=== PATIENT | female | born 1960 | race Caucasian/White ===

== ENCOUNTER 2019-02-04 09:37 | Outpatient (REF) | payer OTHER, SELFPAY ==
--- NOTE | 2019-02-04 08:30 | PAPFT_PTH ---
PATIENT: Elizabeth Hurley LOC: MARIELLA U#:[id number] AGE/SX: 59/F ROOM: RE02/04/[address]: Shirley Nation : 1960 BED: DIS: 02/04/2019 SPEC #: [id number] RECD: 02/05/19 12:05 STATUS: SOFIE REGeeta #: [id number] SKYLER: 02/04/19 08:[address]: Shirley Nation DEPT: [facility] Cytology RECD BY: Sharon Ratliff ENTERED: 02/05/19 12:05 SP TYPE: PAPFT KENDALL DR: Unknown,Unknown Tissues: 1 - CX/ENDOCX FOR PAP SMEARS Procedures: PAP THIN PREP/UVM Screening Comments: [id number] (UNSATISFACTORY FOR EVALUATION)
== END 2019-02-04 09:57 ==
LOC: LBN 09:37
PROVIDERS: Visit Provider Registered Nurse
DX: Z12.4 Encounter for screening for malignant neoplasm of cervix (principal); Z11.51 Encounter for screening for human papillomavirus (HPV); Z00.00 Encounter for general adult medical examination without abnormal findings
CPT/HCPCS: 88142; 87624

== ENCOUNTER 2019-05-22 16:40 | Outpatient (REF) | payer OTHER, SELFPAY ==
--- NOTE | 2019-05-22 16:00 | PAPFT_PTH ---
PATIENT: Elizabeth Hurley LOC: NCN U#:[id number] AGE/SX: 59/F ROOM: RE05/22/[address]: Shirley Nation : 1960 BED: DIS: 05/22/2019 SPEC #: [id number] RECD: 05/23/19 13:01 STATUS: SOFIE REQ #: [id number] SKYLER: 05/22/19 16:[address]: Shirley Nation DEPT: [facility] Cytology RECD BY: Valerie Pleitez ENTERED: 05/23/19 13:01 SP TYPE: PAPFT KENDALL DR: Unknown,Unknown Tissues: 1 - CX/ENDOCX FOR PAP SMEARS Procedures: PAP THIN PREP/UVM Screening HPV DNA PROBE Comments: [id number]
== END 2019-05-22 17:00 ==
LOC: NCHCN 16:40
PROVIDERS: Visit Provider Registered Nurse
DX: Z12.4 Encounter for screening for malignant neoplasm of cervix (principal); Z11.51 Encounter for screening for human papillomavirus (HPV)
CPT/HCPCS: 88142; 87624

== ENCOUNTER 2020-07-09 08:11 | Outpatient (REF) | payer OTHER, SELFPAY ==
[2020-07-09 21:24] LABS: Calculated LDL 208 mg/dL (<100); Cholesterol 300 mg/dL (<200); HDL Cholesterol 71 mg/dL (40-60); Triglyceride 107 mg/dL (<150)
== END 2020-07-09 08:31 ==
LOC: NCHCN 08:11
PROVIDERS: Visit Provider Registered Nurse
DX: E78.5 Hyperlipidemia, unspecified (principal)
CPT/HCPCS: 80061

== ENCOUNTER 2022-07-26 16:43 | Outpatient (REF) | payer BC, SELFPAY ==
[2022-07-26 21:41] LABS: BUN 15 mg/dL (7-18); CREATININE 0.6 mg/dL (0.55-1.02); Calcium 8.8 mg/dL (8.5-10.1); Calculated LDL 128 mg/dL (<100); Chloride 101 mmol/L (98-107); Cholesterol 217 mg/dL (<200); Estimated GFR 102.69 (mL/min/1.73m2); Glucose 88 mg/dL (74-106); HDL Cholesterol 71 mg/dL (40-60); Potassium 4.1 mmol/L (3.5-5.1); Sodium 139 mmol/L (136-145); Triglyceride 93 mg/dL (<150)
== END 2022-07-26 16:44 | disposition home or self-care (01) ==
LOC: NCHCN 16:43
PROVIDERS: Visit Provider Registered Nurse
DX: Z00.00 Encounter for general adult medical examination without abnormal findings (principal); E78.5 Hyperlipidemia, unspecified
CPT/HCPCS: 80048; 80061

== ENCOUNTER 2023-08-15 17:24 | Outpatient (REF) | payer BC, SELFPAY ==
[2023-08-15 22:04] LABS: Anion Gap 8.7 mmol/L (3-11); BUN 11 mg/dL (7-18); CO2 25.3 mmol/L (21.0-32.0); CREATININE 0.7 mg/dL (0.55-1.02); Calcium 9.1 mg/dL (8.5-10.1); Calculated LDL 201 mg/dL (<100); Chloride 102 mmol/L (98-107); Cholesterol 285 mg/dL (<200); Estimated GFR 98.34 (mL/min/1.73m2); Glucose 101 mg/dL (74-106); HDL Cholesterol 64 mg/dL (40-60); Potassium 4.2 mmol/L (3.5-5.1); Sodium 136 mmol/L (136-145); Triglyceride 104 mg/dL (<150)
== END 2023-08-15 17:25 | disposition home or self-care (01) ==
LOC: NCHCN 17:24
PROVIDERS: Visit Provider Nurse Practitioner Family
DX: E78.5 Hyperlipidemia, unspecified (principal)
CPT/HCPCS: 80048; 80061

== ENCOUNTER 2024-08-12 11:28 | Outpatient (REF) | payer OTHER, SELFPAY ==
--- OUTSIDE RECORDS SUMMARY | 2024-08-12 11:36 | XMS_ITS | Encounter Summary ---
Author Organization [facility] Address [address] [place] [address] Care Team Providers Care Caustic Pump Operator Name Role Phone Yaw Perea MD Primary Care Provider [phone] Encounter Details Date Type Department Care Team (Latest Contact Info) Description 10/12/2015 15:48 EST - 10/12/2015 23:59 [place] [address] Unknown, Provider, Discharge Disposition: Home or Self Care Social History Tobacco Use Types Packs/Day Years Used Date Smoking Tobacco: Never Alcohol Use Standard Drinks/Week Comments No 0 (1 standard drink = 0.6 oz pur e alcohol) Comments Unknown Sex and Gender Information Value Date Recorded Sex Assigned at Not on file Legal Sex Female 17:37 EST Gender Identity Female 05/08/2022 15:52 EDT Sexual Orientation Not on file documented as of this encounter Medications at Time of Discharge simvastatin (ZOCOR) 40 mg tablet Take 1 Tablet by mouth daily. documented as of this encounter Discharge Disposition Disposition Code Departure Means Destination Home or Self Alf documented in this encounter Plan of Treatment Upcoming Encounters Date Type Department Care Team (Late st Contact Info) Description 09/23/2024 15:50 EST Appointment [facility] Mammography [address] [place] [address] documented as of this encounter Visit Diagnoses Not on filedocumented in this encounter Care Teams Caustic Pump Operator Relationship Specialty Start Date End Date Yaw Perea MD [address] [place] [address] PCP - General 03/24/11 03/10/20 documented as of this encounter
--- OUTSIDE RECORDS SUMMARY | 2024-08-12 11:36 | XMS_ITS | Encounter Summary ---
Author Organization [facility] Address [address] [place] [address] Care Team Providers Care Dietary Tech Name Role Phone Yaw Perea MD Primary Care Provider [phone] Encounter Details Date Type Department Care Team (Late st Contact Info) Description 01/17/2019 Historical Results Only [facility] Radiology Results [address] [place], [place] [address] Shirley Nation, QUARTER LINING SMOOTHER [address] [place] [address] Social History Tobacco Use Types Packs/Day Years [...] on file documented as of this encounter Plan of Treatment Upcoming Encounters Date Type Department Care Team (Late st Contact Info) Description 09/23/2024 15:50 EST Appointment [facility] Mammography [address] [place] [address] documented as of this encounter Procedures Procedure Name Priority Date/Time Associated Diagnosis Comments MA BREAST DIAGNOSTIC UNILATERAL AMY 01/17/2019 11:42 EDT US BREAST LIMITED UNILATERAL 01/17/2019 11:42 EDT documented in this encounter Results * US BREAST LIMITED UNILATERAL (01/17/2019 11:42 EDT) Anatomical Region Laterality Modality Breast Other 01/17/2019 11:4 2 EDT Narrative 01/17/2019 11:42 EDT ? AN ADDENDUM IS INCLUDED ON THIS REPORT ? ADDENDUM ? ADDENDUM: ? DIAGNOSTIC RIGHT BREAST MAMMOGRAM: Full field 2D (C0VIEW) AND 3D ML ? and spot MLO views were obtained of the right breast. CAD technology ? and breast tomosynthesis was utilized. ? ADDENDUM SIGNED IN OTHER VENDOR SYSTEM 03/20/2019 ?Reported By: Baron Reis MD ?Transcribed: 03/20/2019 (1450) .NAIFSCR ?REPORT ? EXAM: ULTRASOUND/UNILAT BREAST CALL BACK ??EX. D/ (1107) ? CLINICAL INFORMATION: ? RIGHT BREAST, CYSTIC VS SOLID ? INDICATION: RIGHT BREAST, CYSTIC VS SOLID RIGHT BREAST NODULE ? DIAGNOSTIC RIGHT BREAST MAMMOGRAM: Full field ML and spot MLO views ? were obtained of the right breast. CAD technology and breast ? tomosynthesis was utilized. ? FINDINGS: On the current exam, central breast tissue is seen. On the ? current exam, this tissue appears very similar to numerous prior ? studies including the 2017 and 2016 prior studies. No clear discrete ? suspicious mass is noted. No architectural distortion is seen. There ? are scattered areas of fibroglandular density. ? DIAGNOSTIC RIGHT BREAST ULTRASOUND: ??Whole breast ultrasound ? evaluation, including the retroareolar region and all 4 quadrants, ? was obtained. ? FINDINGS: Incidental note is made of a 2-mm cyst in the central right ? breast at approximately the 9 o'clock position, 1 cm from the nipple. ? The breast tissue is otherwise normal in appearance throughout the ? breast parenchyma. No architectural distortion is noted. No ? suspicious mass is seen. ? IMPRESSION: ??This is a negative right breast mammogram and ultrasound ? (ACR category 1). Prominent tissue is seen in the central right ? breast, unchanged from 2016. No suspicious mass or architectural ? distortion is seen. The patient should return in one year for ? bilateral breast screening mammography. ? FINAL ASSESSMENT: ??DIAGNOSTIC RIGHT BREAST MAMMOGRAM/ULTRASOUND - ? BI-RADS Category 1 - Negative. ? These findings and recommendations were discussed directly with the ? patient by the ultrasound technology staff at 11:10 AM on 01/17/2019. ? These results will be communicated to your patient via a lay letter ? PAGE 1 ? Signed Report ? (CONTINUED) ? AN ADDENDUM IS INCLUDED ON THIS REPORT ? from Radiology. ??If any additional imaging is needed we will contact ? your patient directly. ? REPORT SIGNED IN OTHER VENDOR SYSTEM 01/19/2019 ?Reported By: Baron Reis MD ? CC: ? Transcribed Date/Time: 01/17/2019 (1142) ? Coil Inspector: ? Printed Date/Time: 04/23/2019 (2150) ? PAGE 2 ? Signed Report ? Procedure Note Baron Reis MD - 06/10/2019 AN ADDENDUM IS INCLUDED ON THIS REPORT ADDENDUM ADDENDUM: DIAGNOSTIC RIGHT BREAST MAMMOGRAM: Full field 2D (C0VIEW) AND 3D ML and spot MLO views were obtained of the right breast. CADtechnology and breast tomosynthesis was utilized. ADDENDUM SIGNED IN OTHER VENDOR SYSTEM 03/20/2019 Reported By: Baron Reis MD Transcribed: 03/20/2019 (1450) REPORT EXAM: ULTRASOUND/UNILAT BREAST CALL BACK EX. D/ (1107) CLINICAL INFORMATION: RIGHT BREAST, CYSTIC VS SOLID INDICATION: RIGHT BREAST, CYSTIC VS SOLID RIGHT BREAST NODULE DIAGNOSTIC RIGHT BREAST MAMMOGRAM: Full field ML and spot MLO views were obtained of the right breast. CAD technology and breast tomosynthesis was utilized. FINDINGS: On the current exam, central breast tissue is seen. Onthe current exam, this tissue appears very similar to numerous prior studies including the 2017 and 2016 prior studies. No cleardiscrete suspicious mass is noted. No architectural distortion is seen.There are scattered areas of fibroglandular density. DIAGNOSTIC RIGHT BREAST ULTRASOUND: Whole breast ultrasound evaluation, including the retroareolar region and all 4 quadrants, was obtained. FINDINGS: Incidental note is made of a 2-mm cyst in the centralright breast at approximately the 9 o'clock position, 1 cm from thenipple. The breast tissue is otherwise normal in appearance throughout the breast parenchyma. No architectural distortion is noted. No suspicious mass is seen. IMPRESSION: This is a negative right breast mammogram andultrasound (ACR category 1). Prominent tissue is seen in the central right breast, unchanged from 2016. No suspicious mass or architectural distortion is seen. The patient should return in one year for bilateral breast screening mammography. FINAL ASSESSMENT: DIAGNOSTIC RIGHT BREAST MAMMOGRAM/ULTRASOUND - BI-RADS Category 1 - Negative. These findings and recommendations were discussed directly with the patient by the ultrasound technology staff at 11:10 AM on01/17/2019. These results will be communicated to your patient via a lay letter PAGE 1 Signed Report (CONTINUED) AN ADDENDUM IS INCLUDED ON THIS REPORT from Radiology. If any additional imaging is needed we willcontact your patient directly. REPORT SIGNED IN OTHER VENDOR SYSTEM 01/19/2019 Reported By: Baron Reis MD CC: Transcribed Date/Time: 01/17/2019 (1142) Coil Inspector: Printed Date/Time: 04/23/2019 (2928) PAGE 2 Signed Report us Shirley Nation QUARTER LINING SMOOTHER IMG US ORDERABLES Final Result * MA BREAST DIAGNOSTIC UNILATERAL AMY (01/17/2019 11:42 EDT) Anatomical Region Laterality Modality Breast Other 01/17/2019 11:4 2 EDT Narrative 01/17/2019 11:42 EDT ? AN ADDENDUM IS INCLUDED ON THIS REPORT ? ADDENDUM ? ADDENDUM: ? DIAGNOSTIC RIGHT BREAST MAMMOGRAM: Full field 2D (C0VIEW) AND 3D ML ? and spot MLO views were obtained of the right breast. CAD technology ? and breast tomosynthesis was utilized. ? ADDENDUM SIGNED IN OTHER VENDOR SYSTEM 03/20/2019 ?Reported By: Baron Reis MD ?Transcribed: 03/20/2019 (1450) .POWSCR ?REPORT ? EXAM: MAMMOGRAM/MAMMO DX CALL BACK UNI W/ EX. D/ (1051) ? CLINICAL INFORMATION: ? RIGHT BREAST, SUSP FINDINGS ON INITIAL ? INDICATION: RIGHT BREAST, CYSTIC VS SOLID RIGHT BREAST NODULE ? DIAGNOSTIC RIGHT BREAST MAMMOGRAM: Full field ML and spot MLO views ? were obtained of the right breast. CAD technology and breast ? tomosynthesis was utilized. ? FINDINGS: On the current exam, central breast tissue is seen. On the ? current exam, this tissue appears very similar to numerous prior ? studies including the 2017 and 2016 prior studies. No clear discrete ? suspicious mass is noted. No architectural distortion is seen. There ? are scattered areas of fibroglandular density. ? DIAGNOSTIC RIGHT BREAST ULTRASOUND: ??Whole breast ultrasound ? evaluation, including the retroareolar region and all 4 quadrants, ? was obtained. ? FINDINGS: Incidental note is made of a 2-mm cyst in the central right ? breast at approximately the 9 o'clock position, 1 cm from the nipple. ? The breast tissue is otherwise normal in appearance throughout the ? breast parenchyma. No architectural distortion is noted. No ? suspicious mass is seen. ? IMPRESSION: ??This is a negative right breast mammogram and ultrasound ? (ACR category 1). Prominent tissue is seen in the central right ? breast, unchanged from 2016. No suspicious mass or architectural ? distortion is seen. The patient should return in one year for ? bilateral breast screening mammography. ? FINAL ASSESSMENT: ??DIAGNOSTIC RIGHT BREAST MAMMOGRAM/ULTRASOUND - ? BI-RADS Category 1 - Negative. ? These findings and recommendations were discussed directly with the ? patient by the ultrasound technology staff at 11:10 AM on 01/17/2019. ? These results will be communicated to your patient via a lay letter ? PAGE 1 ? Signed Report ? (CONTINUED) ? AN ADDENDUM IS INCLUDED ON THIS REPORT ? from Radiology. ??If any additional imaging is needed we will contact ? your patient directly. ? REPORT SIGNED IN OTHER VENDOR SYSTEM 01/19/2019 ?Reported By: Baron Reis MD ? CC: ? Transcribed Date/Time: 01/17/2019 (1142) ? Coil Inspector: ? Printed Date/Time: 04/23/2019 (8719) ? PAGE 2 ? Signed Report ? Procedure Note Baron Reis MD - 06/10/2019 AN ADDENDUM IS INCLUDED ON THIS REPORT ADDENDUM ADDENDUM: DIAGNOSTIC RIGHT BREAST MAMMOGRAM: Full field 2D (C0VIEW) AND 3D ML and spot MLO views were obtained of the right breast. CADtechnology and breast tomosynthesis was utilized. ADDENDUM SIGNED IN OTHER VENDOR SYSTEM 03/20/2019 Reported By: Baron Reis MD Transcribed: 03/20/2019 (5387) REPORT EXAM: MAMMOGRAM/MAMMO DX CALL BACK UNI W/ EX. D/ (1051) CLINICAL INFORMATION: RIGHT BREAST, SUSP FINDINGS ON INITIAL INDICATION: RIGHT BREAST, CYSTIC VS SOLID RIGHT BREAST NODULE DIAGNOSTIC RIGHT BREAST MAMMOGRAM: Full field ML and spot MLO views were obtained of the right breast. CAD technology and breast tomosynthesis was utilized. FINDINGS: On the current exam, central breast tissue is seen. Onthe current exam, this tissue appears very similar to numerous prior studies including the 2017 and 2016 prior studies. No cleardiscrete suspicious mass is noted. No architectural distortion is seen.There are scattered areas of fibroglandular density. DIAGNOSTIC RIGHT BREAST ULTRASOUND: Whole breast ultrasound evaluation, including the retroareolar region and all 4 quadrants, was obtained. FINDINGS: Incidental note is made of a 2-mm cyst in the centralright breast at approximately the 9 o'clock position, 1 cm from thenipple. The breast tissue is otherwise normal in appearance throughout the breast parenchyma. No architectural distortion is noted. No suspicious mass is seen. IMPRESSION: This is a negative right breast mammogram andultrasound (ACR category 1). Prominent tissue is seen in the central right breast, unchanged from 2016. No suspicious mass or architectural distortion is seen. The patient should return in one year for bilateral breast screening mammography. FINAL ASSESSMENT: DIAGNOSTIC RIGHT BREAST MAMMOGRAM/ULTRASOUND - BI-RADS Category 1 - Negative. These findings and recommendations were discussed directly with the patient by the ultrasound technology staff at 11:10 AM on01/17/2019. These results will be communicated to your patient via a lay letter PAGE 1 Signed Report (CONTINUED) AN ADDENDUM IS INCLUDED ON THIS REPORT from Radiology. If any additional imaging is needed we willcontact your patient directly. REPORT SIGNED IN OTHER VENDOR SYSTEM 01/19/2019 Reported By: Baron Reis MD CC: Transcribed Date/Time: 01/17/2019 (5988) Coil Inspector: Printed Date/Time: 04/23/2019 (1034) PAGE 2 Signed Report us Shirley Nation QUARTER LINING SMOOTHER IMG MAMMOGRAPHY ORDERABL ES Final Result documented in this encounter Visit Diagnoses Not on filedocumented in this encounter Care Teams Dietary Tech Relationship Specialty Start Date End Date Yaw Perea MD [address] [place] [address] PCP - General 03/24/11 03/10/20 documented as of this encounter
--- OUTSIDE RECORDS SUMMARY | 2024-08-12 11:36 | XMS_ITS | Encounter Summary ---
Author Organization [facility] Address [address] [place] [address] Care Team Providers Care Director Loan Name Role Phone Yaw Perea MD Primary Care Provider [phone] Encounter Details Date Type Department Care Team (Late st Contact Info) Description 07/22/2014 Historical Results Only [facility] Radiology Results [address] [place] [address] Yaw Perea MD [address] [place] [address] Social History Tobacco Use Types Packs/Day Years [...] Contact Info) Description 09/23/2024 15:50 EST Appointment [facility] Mammography [address] [place] [address] documented as of this encounter Procedures Procedure Name Priority Date/Time Associated Diagnosis Comments MA BREAST SCREENING BILATERAL 07/22/2014 19:13 EST documented in this encounter Results * MA BREAST SCREENING BILATERAL (07/22/2014 19:13 EST) Anatomical Region Laterality Modality Breast Bilateral Other 07/22/2014 19:1 3 EST Narrative 07/27/2014 10:40 EST ? EXAM: MAMMOGRAM/DIGITAL MAMMO LIZZY SCREEN ??EX. D/ (1913) ? CLINICAL INFORMATION: ? SCREENING ? TECHNIQUE: ??Full field digital whole breast 2D and 3D CC and MLO views ? of both breasts were obtained. CAD technology was utilized. ? INDICATION: ??Screening ? FINDINGS: ??The fibroglandular patterns of the breasts are normal. ? There has been no change when compared to previous mammograms and ? there is no mammographic evidence of cancer. The breasts are of ? scattered density. ? FINAL ASSESSMENT: ??BILATERAL BREAST - Category 1 - Negative. Routine ?mammographic follow-up is recommended. ? JSP:[email or web address] ?Reported By: Baron Reis MD ? CC: ? Transcribed Date/Time: 07/27/2014 (1040) ? Assistant Commissioner: ERIC ? Printed Date/Time: 01/06/2019 (1451) ? PAGE 1 ? Signed Report ? Procedure Note Baron Reis MD - 06/10/2019 EXAM: MAMMOGRAM/DIGITAL MAMMO LIZZY SCREEN EX. D/ (191) CLINICAL INFORMATION: SCREENING TECHNIQUE: Full field digital whole breast 2D and 3D CC and MLOviews of both breasts were obtained. CAD technology was utilized. INDICATION: Screening FINDINGS: The fibroglandular patterns of the breasts are normal. There has been no change when compared to previous mammograms and there is no mammographic evidence of cancer. The breasts are of scattered density. FINAL ASSESSMENT: BILATERAL BREAST - Category 1 - Negative.Routine mammographic follow-up is recommended. JSP:[email or web address] Reported By: Baron Reis MD CC: Transcribed Date/Time: 07/27/2014 (1040) Assistant Commissioner: ERIC Printed Date/Time: 01/06/2019 (4610) PAGE 1 Signed Report Yaw Perea MD IMG MAMMOGRAPHY ORDERABLES Final Result documented in this encounter Visit Diagnoses Not on filedocumented in this encounter Care Teams Director Loan Relationship Specialty Start Date End Date Yaw Perea MD [address] [place] [address] PCP - General 03/24/11 03/10/20 documented as of this encounter
--- OUTSIDE RECORDS SUMMARY | 2024-08-12 11:36 | XMS_ITS | Encounter Summary ---
Author Organization [facility] Address [address] [place] [address] Care Team Providers Care Engraver Apprentice Decorative Name Role Phone Petty Carcamo [facility]- Primary Care Provider [phone] Reason for Visit * Reason Comments Tailbone Pain Patient reports that she fell ice skating six weeks ago. Patient notes that injury was resolving. Patient states that after doing yoga last week patient's tailbone pain started to worsen again. Encounter Details Date Type Department Care Team (Late st Contact Info) Description 11/15/2023 10:00 EDT Walk-In [facility] [address] [place] [id number] Gerry Hudson, RESPITE WORKER [address] [facility] [address] [place] [address] Coccyx pain (Primary Dx) Social History Tobacco Use Types Packs/Day Years Used Date Smoking Tobacco: Never Alcohol Use Standard Drinks/Week Comments No 0 (1 standard drink = 0.6 oz pur e alcohol) Interpersonal Safety Answer Date Record ed Physically Hurt Never 03/07/2020 Verbally Threaten Not on file 03/07/2020 Comments No Sex and Gender Information Value Date Recorded Sex Assigned at Not on file Legal Sex Female 17:37 EST Gender Identity Female 05/08/2022 15:52 EDT Sexual Orientation Not on file documented as of this encounter Last Filed Vital Signs Vital Sign Reading Time Taken Comments Blood Pressure 108/76 11/15/2023 1019 EDT Pulse 60 11/15/2023 1019 EDT Temperature 36.5 ??C (97.7 ??F) 11/15/2023 1019 EDT Respiratory Rate 18 11/15/2023 1019 EDT Oxygen Saturation 97% 11/15/2023 1019 EDT Inhaled Oxygen Concentration - - Weight - - Height - - Body Mass Index - - documented in this encounter Patient Instructions * Patient Instructions* Gerry Hudson NP - 11/15/2023 10:00 EDT Right buttock discomfort in coccyx region. Previous injury 6 weeks to coccyx was likely irritated doing chair yoga. Ibuprofen 400mg every 6 hrs for discomfort and ice/heat alternating. This injury will take time. documented in this encounter Progress Notes * Shila Benavides RN - 11/15/2023 1000 EDT CC/HPI: Patient reports that she fell ice skating six weeks ago. Patient notes that injury was resolving. Patient states that after doing yoga last week patient's tailbone pain started to worsen again. Covid Screening: In the last 72 hours, has the patient had: New or unusual cough, shortness of breath, new nasal congestion, sore throat, fever, chills, body aches, or new loss of taste or smell: No In the past 10 days, has the patient had a positive Covid test OR a confirmed close Covid exposure (<6ft for > 15mins in 24hr period)? (if yes, assign to [facility], regardless of vaccination status)-No PCP: [facility]- Dona BENAVIDES RN 11/15/2023 9:55 * Gerry Hudson NP - 11/15/2023 1000 EDT Images from the original note were not included. [facility] Express [facility] Chief Complaint(s): Tailbone Pain (Patient reports that she fell ice skating six weeks ago. Patientnotes that injury was resolving. Patient states that after doing yoga last week patient's tailbone pain started to worsen again.) Assessment & Plan: 1. Coccyx pain New Prescriptions No medications on file This is a 63 y.o. yr old female patient is generally well appearing, afebrile, non toxic, well hydrated, stable on exam with who presents with right lower buttock pain after doing chair yoga. Previous fall and injury to coccyx 6 weeks ago. No sciatica involvement. No lumps or bumps. Pain is over lower right coccyx bone and likely irritation from chair yoga. Ice/heat alternating Ibuprofen 400mg every 6 hrs as needed for discomfort and time. Other considered diagnosis include: strain vs previous coccyx injury HPI: HPI Elizabeth Hurley is a 63 y.o. yr old female here with complaints of fell ice skating six weeks ago. Patient notes that injury was resolving. Patient states that after doing yoga last week patient's tailbone pain started to worsen again. ROS: ROS See HPI Social History Tobacco Use Smoking Status Never Smokeless Tobacco Not on file I have reviewed current problem list and current medications. Objective: Examination: Vital signs and nursing notes reviewed. Vitals: BP 108/76 Pulse 60 Temp 36.5 ??C (97.7 ??F) (Oral) Resp 18 SpO2 97% There is no height or weight on file to calculate BMI. Physical Exam Musculoskeletal: General: Tenderness (coccyx region) present. Normal range of motion. Legs: Comments: No lumps bumps or mass palpated. Tender to deep palpation over coccyx bone Skin: General: Skin is warm and dry. Neurological: Mental Status: She is alert and oriented to person, place, and time. An appropriate medical screening examination was performed. The patient was assessed prior to discharge and deemed stable for discharge home. documented in this encounter Plan of Treatment Upcoming Encounters Date Type Department Care Team (Late st Contact Info) Description 09/23/2024 15:50 EST Appointment [facility] Mammography [address] [place] [address] documented as of this encounter Visit Diagnoses Diagnosis Coccyx pain- Primary Other disorder of coccyx documented in this encounter Historical Medications * This list may reflect changes made after this encounter. estradioL [address] 10 mcg vaginally twice a week. added in this encounter Care Teams Engraver Apprentice Decorative Relationship Specialty Start Date End Date Dona [facility] [address] [place] [address] PCP - General 11/15/23 documented as of this encounter
--- OUTSIDE RECORDS SUMMARY | 2024-08-12 11:36 | XMS_ITS | Encounter Summary ---
Author Organization [facility] Address [address] [place] [address] Care Team Providers Care Corset Fitter Name Role Phone Yaw Perea MD Primary Care Provider [phone] Encounter Details Date Type Department Care Team (Late st Contact Info) Description 01/08/2019 Historical Results Only [facility] Radiology Results [address] [place], [place] [address] Shirley Nation, EMBROIDERY MACHINE OPERATOR [address] [place] [address] Social History Tobacco Use Types [...] Contact Info) Description 09/23/2024 15:50 EST Appointment [facility] Mammography [address] [place] [address] documented as of this encounter Procedures Procedure Name Priority Date/Time Associated Diagnosis Comments MA BREAST SCREENING AMY BILATERAL 01/08/2019 8:59 EDT documented in this encounter Results * MA BREAST SCREENING AMY BILATERAL (01/08/2019 8:59 EDT) Anatomical Region Laterality Modality Breast Bilateral Other 01/08/2019 8:59 EDT Narrative 01/08/2019 8:59 EDT ? EXAM: MAMMOGRAM/MAMMO BILATERAL SCREEN W ??EX. D/ (1743) ? CLINICAL INFORMATION: ? Z12.31 SCREENING ? INDICATION: Z12.31 SCREENING SCREENING ??December 10 18 ? TECHNIQUE: ??Full field digital whole breast 2D (C-view) and 3D CC and ? MLO views of both breasts were obtained. CAD technology was utilized. ? FINDINGS: On the MLO view of the right breast, there is a possible ? central breast small density. The remaining breast parenchyma is ? unremarkable. No additional areas of concern are seen. There are ? scattered areas of fibroglandular density. ? IMPRESSION: ? 1. This is a right breast mammogram with additional imaging required ? (ACR category 0) There is a possible density in the central breast, ? for which further imaging is required. ? 2. This is a negative left breast mammogram (ACR category 1). Left ? breast screening mammography is recommended in one year. ? FINAL ASSESSMENT: ??RIGHT BREAST - BI-RADS Category 0 - Incomplete; ? additional imaging evaluation needed. ? FINAL ASSESSMENT: ??LEFT BREAST - BI-RADS Category 1 - Negative. ? These results will be communicated to your patient via a lay letter ? from Radiology. ??If any additional imaging is needed we will contact ? your patient directly. ? REPORT SIGNED IN OTHER VENDOR SYSTEM 01/08/2019 ?Reported By: Baron Reis MD ? CC: ? Transcribed Date/Time: 01/08/2019 (858) ? Track Machine Operator Repairer: ? Printed Date/Time: 04/23/2019 (737) ? PAGE 1 ? Signed Report ? Procedure Note Baron Reis MD - 06/10/2019 EXAM: MAMMOGRAM/MAMMO BILATERAL SCREEN W EX. D/ (1743) CLINICAL INFORMATION: Z12.31 SCREENING INDICATION: Z12.31 SCREENING SCREENING December 10 TECHNIQUE: Full field digital whole breast 2D (C-view) and 3D CCand MLO views of both breasts were obtained. CAD technology wasutilized. FINDINGS: On the MLO view of the right breast, there is a possible central breast small density. The remaining breast parenchyma is unremarkable. No additional areas of concern are seen. There are scattered areas of fibroglandular density. IMPRESSION: 1. This is a right breast mammogram with additional imagingrequired (ACR category 0) There is a possible density in the central breast, for which further imaging is required. 2. This is a negative left breast mammogram (ACR category 1). Left breast screening mammography is recommended in one year. FINAL ASSESSMENT: RIGHT BREAST - BI-RADS Category 0 - Incomplete; additional imaging evaluation needed. FINAL ASSESSMENT: LEFT BREAST - BI-RADS Category 1 - Negative. These results will be communicated to your patient via a lay letter from Radiology. If any additional imaging is needed we willcontact your patient directly. REPORT SIGNED IN OTHER VENDOR SYSTEM 01/08/2019 Reported By: Baron Reis MD CC: Transcribed Date/Time: 01/08/2019 (59) Track Machine Operator Repairer: Printed Date/Time: 04/23/2019 (506) PAGE 1 Signed Report Shirley Nation EMBROIDERY MACHINE OPERATOR IMG MAMMOGRAPHY ORDERABL ES Final Result documented in this encounter Visit Diagnoses Not on filedocumented in this encounter Care Teams Corset Fitter Relationship Specialty Start Date End Date Yaw Perea MD [address] [place] [address] PCP - General 03/24/11 03/10/20 documented as of this encounter
--- OUTSIDE RECORDS SUMMARY | 2024-08-12 11:36 | XMS_ITS | Encounter Summary ---
Author Organization [facility] Address [address] [place] [address] Care Team Providers Care Meter/Relay Technician Name Role Phone Yaw Perea MD Primary Care Provider [phone] Encounter Details Date Type Department Care Team (Latest Contact Info) Description 12/08/2013 10:49 EDT - 12/08/2013 23:59 [place] [address] Unknown, Provider, Discharge Disposition: Home or Self [...] Code Departure Means Destination Home or Self Long-Term documented in this encounter Plan of Treatment Upcoming Encounters Date Type Department Care Team (Late st Contact Info) Description 09/23/2024 15:50 EST Appointment [facility] Mammography [address] [place], [place] [id number] documented as of this encounter Visit Diagnoses Not on filedocumented in this encounter Care Teams Meter/Relay Technician Relationship Specialty Start Date End Date Yaw Perea MD [address] [place] [address] PCP - General 03/24/11 03/10/20 documented as of this encounter
--- OUTSIDE RECORDS SUMMARY | 2024-08-12 11:36 | XMS_ITS | Encounter Summary ---
Author Organization [facility] Address [address] [place] [address] Care Team Providers Care Encephalographer Name Role Phone Yaw Perea MD Primary Care Provider [phone] Encounter Details Date Type Department Care Team (Late st Contact Info) Description 10/12/2015 Historical Results Only [facility] Radiology Results [address] [place] [address] Yaw Perea MD [address] [place] [address] Social History Tobacco Use Types Packs/Day [...] Contact Info) Description 09/23/2024 15:50 EST Appointment [facility] Mammography [address] [place] [address] documented as of this encounter Procedures Procedure Name Priority Date/Time Associated Diagnosis Comments MA BREAST SCREENING AMY BILATERAL 10/12/2015 16:40 EST documented in this encounter Results * MA BREAST SCREENING AMY BILATERAL (10/12/2015 16:40 EST) Anatomical Region Laterality Modality Breast Bilateral Other 10/12/2015 16:4 0 EST Narrative 10/13/2015 15:25 EST ? EXAM: MAMMOGRAM/MAMMO BILATERAL SCREEN W ??EX. D/ (1640) ? CLINICAL INFORMATION: ? Z12.39 SCREENING ? TECHNIQUE: ??Full field digital whole [...] Negative. Routine ?mammographic follow-up is recommended. ? These results will be communicated to your patient via a lay letter ? from Radiology. ??If any additional imaging is needed we will contact ? your patient directly. ? BBL:kad ?Reported By: Pasha Miller MD ? CC: ? Transcribed Date/Time: 10/13/2015 (1525) ? Market Manager: ERIC ? Printed Date/Time: 01/16/2019 (3743) ? PAGE 1 ? Signed Report ? Procedure Note Pasha Miller MD - 06/11/2019 EXAM: MAMMOGRAM/MAMMO BILATERAL SCREEN W EX. D/ (1640) CLINICAL INFORMATION: Z12.39 SCREENING TECHNIQUE: Full field digital whole breast 2D (C-view) and 3D CCand MLO views of both breasts were obtained. CAD technology wasutilized. INDICATION: Screening FINDINGS: The fibroglandular patterns of the breasts are normal. There has been no change when compared to previous mammograms and there is no mammographic evidence of cancer. The breasts are of scattered density. FINAL ASSESSMENT: BILATERAL BREAST - Category 1 - Negative.Routine mammographic follow-up is recommended. These results will be communicated to your patient via a lay letter from Radiology. If any additional imaging is needed we willcontact your patient directly. BBL:[email or web address] Reported By: Pasha Miller MD CC: Transcribed Date/Time: 10/13/2015 (4626) Market Manager: ERIC Printed Date/Time: 01/16/2019 (5858) PAGE 1 Signed Report Yaw Perea MD IM MAMMOGRAPHY ORDERABLES Final Result documented in this encounter Visit Diagnoses Not on filedocumented in this encounter Care Teams Encephalographer Relationship Specialty Start Date End Date Yaw Perea MD [address] [place] [address] PCP - General 03/24/11 03/10/20 documented as of this encounter
--- OUTSIDE RECORDS SUMMARY | 2024-08-12 11:36 | XMS_ITS | Encounter Summary ---
Author Organization [facility] Address [address] [place] [address] Care Team Providers Care Communication Equipment Mechanic Name Role Phone Yaw Perea MD Primary Care Provider [phone] Encounter Details Date Type Department Care Team (Latest Contact Info) Description 07/22/2014 8:34 EST - 07/22/2014 23:59 [place] [address] Unknown, Provider, Discharge Disposition: Home or Self [...] Code Departure Means Destination Home or Self [facility] documented in this encounter Plan of Treatment Upcoming Encounters Date Type Department Care Team (Late st Contact Info) Description 09/23/2024 15:50 EST Appointment [facility] [address] [place] [address] documented as of this encounter Visit Diagnoses Not on filedocumented in this encounter Care Teams Communication Equipment Mechanic Relationship Specialty Start Date End Date Yaw Perea MD [address] [place] [address] PCP - General 03/24/11 03/10/20 documented as of this encounter
--- OUTSIDE RECORDS SUMMARY | 2024-08-12 11:36 | XMS_ITS | Encounter Summary ---
Author Organization [facility] Address [address] [place] [address] Care Team Providers Care Clinical Team Lead Name Role Phone Yaw Perea MD Primary Care Provider [phone] Reason for Visit * Reason Comments Laryngitis 3 months chronic lar yngitis worse with voice overuse. changes in severity mild to severe-started with cold and allergy symptoms Encounter Details Date Type Department Care Team (Late st Contact Info) Description 05/02/2011 14:20 EDT Office Visit [facility] ENT [facility] [address] [place] [address] Unknown, Provider, Ganesh Ahn MD [address] [place] [address] [address] [phone] Vocal cord nodules (Primary Dx) Social History Tobacco Use Types [...] Sign Reading Time Taken Comments Blood Pressure 104/75 05/02/2011 1425 EDT Pulse 79 05/02/2011 1425 EDT Temperature - - Respiratory Rate 14 05/02/2011 1425 EDT Oxygen Saturation - - Inhaled Oxygen Concentration - - Weight 63.5 kg (140 lb) 05/02/2011 1425 EDT Height 161.3 cm (5' 3.5) 05/02/2011 1425 EDT Body Mass Index 24.41 05/02/2011 1425 EDT documented in this encounter Progress Notes * Ganesh Funes MD - 05/02/2011 1445 EDT This is a consult from Yaw Perea for evaluation of hoarseness. History of Present Illness: This is a 51-year-old female with a 3-month history of hoarseness of mild severity, constant, following an episode of severe laryngitis after allergy or upper respiratory tract infection. Her voice is worse after prolonged use. 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 No dysphagia or odynophagia or weight loss. Past Medical History: The patient denies any other medical illnesses. No previous surgeries. Family history is significant for thyroid disease in a sister. Current medications include simvastatin. She has no known drug allergies. Review of Systems: Otherwise, negative for complete review of all systems. Objective: General: Well-developed, well-nourished, pleasant, cooperative adult female in no acute distress. Voice is slightly low-pitched and rough. Vital signs: Height 63-1/2 inches, weight 140. Blood pressure 104/75, pulse 79, respirations 14. No reportable pain. The face is normal without lesions. No tenderness to palpation. Salivary glands are normal. Facial strength is symmetric. Eye exam is normal. Ears: External ears normal; canals are clear; tympanic membranes are normal. Hearing is intact. Nose: Nasal dorsum is midline; the airway is patent. Oral cavity is clear. Posterior pharynx is clear. Neck: No pathologic lymphadenopathy. Trachea is midline. Thyroid is normal. Chest is clear to auscultation. Heart: Regular rate and rhythm. Procedure: Fiberoptic nasal endoscopy was performed with topical anesthesia. There is a right nasoseptal deviation with a posterior septal spur. Both middle meatus are clear. The maxillary sinus ostia is patent. The nasopharynx is clear. The base of tongue, epiglottis, vallecula, piriform sinuses and false vocal cords are within normal limits. There is mild bilateral true vocal cord edema. There is a blood vessel on the right anterior superior surface of vocal folds, and there is a very mild bilateral true vocal cord nodule. 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 Plan: Voice rest and instruction material was given to the patient. Speech therapy was also recommended to the patient. Follow up with ENT p.r.n. CC/ Yaw Perea documented in this encounter Plan of Treatment Upcoming Encounters Date Type Department Care Team (Late st Contact Info) Description 09/23/2024 15:50 EST Appointment [address] [address] documented as of this encounter Visit Diagnoses Diagnosis Vocal cord nodules- Primary Other diseases of vocal cords documented in this encounter Care Teams Clinical Team Lead Relationship Specialty Start Date End Date Yaw Perea MD [address] [place] [address] PCP - General 03/24/11 03/10/20 documented as of this encounter
--- OUTSIDE RECORDS SUMMARY | 2024-08-12 11:36 | XMS_ITS | Encounter Summary ---
Author Organization [facility] Address [address] [place] [address] Care Team Providers Care Ice Seller Name Role Phone Shirley Nation CHIP CRUSHER OPERATOR Primary Care Provider + [facility] Primary Care Provider [phone] Encounter Details Date Type Department Care Team (Late st Contact Info) Description 04/13/2021 Results Only Imaging [facility] Radiology Results [address] [place] [address] Shirley Nation, CHIP CRUSHER OPERATOR [address] [place] [address] Social History Tobacco Use Types Packs/Day Years Used Date Smoking Tobacco: Never Alcohol Use Standard Drinks/Week Comments No 0 (1 standard drink = 0.6 oz pur e alcohol) Interpersonal Safety Answer Date Record ed Physically Hurt Never 03/07/2020 Verbally Threaten Not on file 03/07/2020 Comments Unknown Sex and Gender Information Value Date Recorded Sex Assigned at Not on file Legal Sex Female 17:37 EST Gender Identity Female 05/08/2022 15:52 EDT Sexual Orientation Not on file documented as of this encounter Plan of Treatment Upcoming Encounters Date Type Department Care Team (Late st Contact Info) Description 09/23/2024 15:50 EST Appointment [facility] Mammography [address] [place] [address] documented as of this encounter Procedures Procedure Name Priority Date/Time Associated Diagnosis Comments MA BREAST SCREENING AMY BILATERAL 04/13/2021 14:54 EDT documented in this encounter Results * MA BREAST SCREENING AMY BILATERAL (04/13/2021 14:54 EDT) Anatomical Region Laterality Modality Breast Bilateral Mammography 04/13/2021 14:5 4 EDT Narrative 04/13/2021 14:54 EDT ? EXAM: MAMMOGRAM/MAMMO BILATERAL SCREEN W ??EX. D/ (1704) ? CLINICAL INFORMATION: ? Z12.31 SCREENING ? INDICATION: Z12.31 SCREENING SCREENING; 04/06/2020 ? COMPARISON: ??Comparison has been made to previous images. ? TECHNIQUE: ??Full field digital whole breast 2D (C-view) and 3D CC and ? MLO views of both breasts were obtained. CAD technology was utilized. ? FINDINGS: ??The fibroglandular patterns of the breasts are normal. ? There has been no change when compared to previous mammograms and ? there is no mammographic evidence of cancer. ??There are scattered ? areas of fibroglandular density. ? FINAL ASSESSMENT: ??BILATERAL BREAST - Category 1 - Negative. Routine ? mammographic follow-up is recommended. ? These results will be communicated to your patient via a lay letter ? from Radiology. ??If any additional imaging is needed we will contact ? your patient directly. ? REPORT SIGNED IN OTHER VENDOR SYSTEM 04/13/2021 ?Reported By: Baron Reis MD ? CC: ? Transcribed Date/Time: 04/13/2021 (1809) ? Interventional Physiatrist: ? Printed Date/Time: 04/13/2021 (0058) ? PAGE 1 ? Signed Report ? Procedure Note Baron Reis MD - 04/13/2021 EXAM: MAMMOGRAM/MAMMO BILATERAL SCREEN W EX. D/ (1704) CLINICAL INFORMATION: Z12.31 SCREENING INDICATION: Z12.31 SCREENING SCREENING; 04/06/2020 COMPARISON: Comparison has been made to previous images. TECHNIQUE: Full field digital whole breast 2D (C-view) and 3D CCand MLO views of both breasts were obtained. CAD technology wasutilized. FINDINGS: The fibroglandular patterns of the breasts are normal. There has been no change when compared to previous mammograms and there is no mammographic evidence of cancer. There are scattered areas of fibroglandular density. FINAL ASSESSMENT: BILATERAL BREAST - Category 1 - Negative.Routine mammographic follow-up is recommended. These results will be communicated to your patient via a lay letter from Radiology. If any additional imaging is needed we willcontact your patient directly. REPORT SIGNED IN OTHER VENDOR SYSTEM 04/13/2021 Reported By: Baron Reis MD CC: Transcribed Date/Time: 04/13/2021 (8227) Interventional Physiatrist: Printed Date/Time: 04/13/2021 (6867) PAGE 1 Signed Report Shirley Nation APRN IMG MAMMOGRAPHY ORDERABL ES Final Result documented in this encounter Visit Diagnoses Not on filedocumented in this encounter Care Teams Ice Seller Relationship Specialty Start Date End Date Shirley Nation APRN [address] [place] [address] PCP - General 04/06/20 11/14/23 [facility] [address] [place] [address] PCP - General 11/15/23 documented as of this encounter
--- OUTSIDE RECORDS SUMMARY | 2024-08-12 11:36 | XMS_ITS | Encounter Summary ---
Author Organization [facility] Address [address] [place] [address] Care Team Providers Care Rustic Terrazzo Setter Name Role Phone Yaw Perea MD Primary Care Provider [phone] Encounter Details Date Type Department Care Team (Late st Contact Info) Description 12/04/2013 Historical Results Only [facility] - Main [place] [address] [place] [address] Yaw Perea MD [address] [place] [address] Social History Tobacco Use Types Packs/Day [...] Contact Info) Description 09/23/2024 15:50 EST Appointment [facility] Mammography [address] [place] [address] documented as of this encounter Procedures Procedure Name Priority Date/Time Associated Diagnosis Comments PAP TEST Routine 12/04/2013 10:09 EDT documented in this encounter Results * PAP TEST (12/04/2013 10:09 EDT) 12/04/2013 10:0 9 EDT 12/05/2013 10:09 EDT Narrative [facility] - 12/11/2013 11:37 EDT ----- ------- Name: ELIZABETH HURLEY ? : 64 ?Age/Sex: 59/F ?Unit#: [id number] ? Loc: [facility] ? Status: REG POV ?? Reg Date: 12/04/13 ? Pt.Phone Number: ? ----- ------- Specimen: [id number] ?STATUS: SOUT ?Spec Date:12/04/13 ? Physician Copies: ?Yaw Perea MD ? Tissues: ? Cervical/Endo Pap ? CPT: 78567 ?? Units: ??1 ----- ------- ? CYTOLOGY DIAGNOSIS SPECIMEN ADEQUACY: ??Satisfactory for evaluation. Assessment of transformation zone not applicable (e.g. ??atrophy, vaginal sample, hysterectomy). GENERAL CATEGORIZATION: ?Negative for Intraepithelial Lesion or Malignancy DESCRIPTIVE DIAGNOSIS: ? Negative for Intraepithelial Lesion or Malignancy. ----- ------- ?HPV DNA RESULTS ?? 12/04/13 1009 HPV DNA RESULT ??NEG ? Negative for HPV types 16, 18, 31, 33, 35, 39, 45, 51, 52, ? 56, 58, 59, 66, 68. ? Method: JollyDeckista HPV HR (High Risk) DNA test. ----- ------- ORDER QUERIES: LMP: 2012 ?- 2011 ? N Post ? N ??PREVIOUS ATYPICAL: N BCP/HRT? N Rad Rx? N IUD? N ??PAP PLUS HPV? Y ??REFLEX TO HR-HPV IF ASCUS Y REFLEX TO HPV 16/18 IF HPV POS/PAP NEG Y HPV REGARDLESS? Y ??RFLX HPV IF LSIL ?? Signed ____(signature on file)____ Sana Shearer M.D. 12/11/13 By the signature above, the attending physician certifies that he/she has personally conducted a gross and/or microscopic examination of the described specimens and rendered or confirmed the above diagnosis. Test Performed by [facility], [address] [place], [place] [id number] [employer] Builder [employer] Service: Sana Shearer MD PHD ----- ------- us Yaw Perea MD PATHOLOGY ORDERABLES Final Resul t [facility] documented in this encounter Visit Diagnoses Not on filedocumented in this encounter Care Teams Rustic Terrazzo Setter Relationship Specialty Start Date End Date Yaw Perea MD [address] [place] [address] PCP - General 03/24/11 03/10/20 documented as of this encounter
--- OUTSIDE RECORDS SUMMARY | 2024-08-12 11:36 | XMS_ITS | Encounter Summary ---
Author Organization [facility] Address [address] [place] [address] Care Team Providers Care Emergency Department Manager Name Role Phone Shirley Nation OIL HEAT TECHNICIAN Primary Care Provider + Don[facility] Primary Care Provider [phone] Encounter Details Date Type Department Care Team (Late st Contact Info) Description 04/07/2020 Results Only Imaging [facility] Radiology Results [address] [place] [address] Shirley Nation, OIL HEAT TECHNICIAN [address] [place] [address] Social History Tobacco Use Types [...] Info) Description 09/23/2024 15:50 EST Appointment [facility] Mammography [address] [place] [address] documented as of this encounter Procedures Procedure Name Priority Date/Time Associated Diagnosis Comments MA BREAST SCREENING AMY BILATERAL 04/07/2020 12:58 EDT documented in this encounter Results * MA BREAST SCREENING AMY BILATERAL (04/07/2020 12:58 EDT) Anatomical Region Laterality Modality Breast Bilateral Mammography 04/07/2020 12:5 7 EDT Narrative 04/07/2020 12:58 EDT ? EXAM: MAMMOGRAM/MAMMO BILATERAL SCREEN W ??EX. D/ (1555) ? CLINICAL INFORMATION: ? Z12.31 SCREENING ? INDICATION: Z12.31 SCREENING ??SCREENING Jan 06 ? COMPARISON: ??Comparison has been made to [...] ? REPORT SIGNED IN OTHER VENDOR SYSTEM 04/07/2020 ?Reported By: Pasha Miller MD ? CC: ? Transcribed Date/Time: 04/07/2020 (1258) ? Senior Integration Developer: ? Printed Date/Time: 04/07/2020 (6533) ? PAGE 1 ? Signed Report ? Procedure Note Pasha Miller MD - 04/07/2020 EXAM: MAMMOGRAM/MAMMO BILATERAL SCREEN W EX. D/ (1555) CLINICAL INFORMATION: Z12.31 SCREENING INDICATION: Z12.31 SCREENING SCREENING Jan 06 COMPARISON: Comparison has been made to previous [...] directly. REPORT SIGNED IN OTHER VENDOR SYSTEM 04/07/2020 Reported By: Pasha Miller MD CC: Transcribed Date/Time: 04/07/2020 (7022) Senior Integration Developer: Printed Date/Time: 04/07/2020 (8829) PAGE 1 Signed Report Shirley Nation APRN IMG MAMMOGRAPHY ORDERABL ES Final Result documented in this encounter Visit Diagnoses Not on filedocumented in this encounter Care Teams Emergency Department Manager Relationship Specialty Start Date End Date Shirley Nation APRN [address] [place] [id number] PCP - General 04/06/20 11/14/23 [facility] [address] [place] [address] PCP - General 11/15/23 documented as of this encounter
--- OUTSIDE RECORDS SUMMARY | 2024-08-12 11:36 | XMS_ITS | Encounter Summary ---
Author Organization [facility] Address [address] [place] [address] Care Team Providers Care Ex Assistant/Program Director Name Role Phone Yaw Perea MD Primary Care Provider [phone] Encounter Details Date Type Department Care Team (Latest Contact Info) Description 12/10/2017 21:10 EDT - 12/10/2017 23:59 [place] [address] Unknown, Provider, Discharge Disposition: Home or Self [...] Code Departure Means Destination Home or Self [facility] documented in this encounter Plan of Treatment Upcoming Encounters Date Type Department Care Team (Late st Contact Info) Description 09/23/2024 15:50 EST Appointment [facility] Mammography [address] [place], [place] [id number] documented as of this encounter Visit Diagnoses Not on filedocumented in this encounter Care Teams Ex Assistant/Program Director Relationship Specialty Start Date End Date Yaw Perea MD [address] [place] [address] PCP - General 03/24/11 03/10/20 documented as of this encounter
--- OUTSIDE RECORDS SUMMARY | 2024-08-12 11:36 | XMS_ITS | Encounter Summary ---
Author Organization [facility] Address [address] [place] [address] Care Team Providers Care Pulp Tester Name Role Phone Yaw Perea MD Primary Care Provider [phone] Encounter Details Date Type Department Care Team (Latest Contact Info) Description 01/06/2019 9:13 EDT - 01/06/2019 23:59 [place] [address] Unknown, Provider, Discharge Disposition: Home or Self [...] Contact Info) Description 09/23/2024 15:50 EST Appointment [facility] Mammography [address] [place], [place] [phone] documented as of this encounter Visit Diagnoses Not on filedocumented in this encounter Care Teams Pulp Tester Relationship Specialty Start Date End Date Yaw Perea MD [address] [place] [address] PCP - General 03/24/11 03/10/20 documented as of this encounter
--- OUTSIDE RECORDS SUMMARY | 2024-08-12 11:36 | XMS_ITS | Clinical Summary ---
Author Organization [facility] Address [address] [place] [address] Care Team Providers Care Plate Mill Hand Name Role Phone [facility] Primary Care Provider [phone] Allergies No known active allergies Medications simvastatin (ZOCOR) 40 mg tablet Take 1 Tablet by mouth daily. Active estradioL [address] 10 mcg vaginally twice a week. Active cholecalciferol , Vitamin D3, 25 mcg (1,000 unit) tablet Take 1 Tablet by mouth daily. 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 Family History Medical History Relation Comments Thyroid Disease Sister Relation Status Comments Sister Social History Tobacco Use Types Packs/Day Years [...] 15:52 EDT Sexual Orientation Not on file Obstetrics History Para Term AB IAB SAB Ectopic Multiple Livin g Live Births 3 3 3 Date Outcome GA Total Labor Labor/2nd/3rd Weight Sex Type Anes PTL Winter A1 A5 Name Clin Para Para Para Last Filed Vital Signs Vital Sign Reading Time Taken Comments Blood Pressure 109/80 05/01/2024 1016 EDT Pulse 60 11/15/2023 1019 EDT Temperature 36.3 ??C (97.4 ??F) 05/01/2024 1016 EDT Respiratory Rate 12 05/01/2024 1016 EDT Oxygen Saturation 99% 05/01/2024 1016 EDT Inhaled Oxygen Concentration - - Weight 63.5 kg (140 lb) 05/02/2011 1425 EDT Height 161.3 cm (5' 3.5) 05/02/2011 1425 EDT Body Mass Index 24.41 05/02/2011 1425 EDT Plan of Treatment Upcoming Encounters Date Type Department Care Team (Late st Contact Info) Description 09/23/2024 15:[address] [facility] Mammography [address] [place] [address] Health Maintenance Due Date Last Done Comments Hepatitis C Screen 1960 COVID-19 Vaccine (2023- season) 2024 RSV Immunization ( o r 60+ Years) (1 - 1-dose 75+ series) 2037 Colonoscopy (Colon Cancer Screening) Discontinued 04/07 Colorectal Cancer Screening Discontinued Cologuard (Colon Cancer Screening) Discontinued FIT Test (Colon Cancer Screening) Discontinued Sigmoidoscopy (Colon Cancer Screening) Discontinued Procedures Procedure Name Priority Date/Time Associated Diagnosis Comments COLONOSCOPY Routine 05/01/2024 8:45 EDT Encounter for screening colonoscopy from Last 3 Months or Most Recently Relevant to Health Maintenance Results * COLONOSCOPY (05/01/2024 8:45 EDT) Anatomical Region Laterality Modality Endoscopy Narrative 05/01/2024 8:45 EDT [facility] ?? [address], [place], [place] [address] ?? Patient Name ?ELIZABETH HURLEY Date of ?1960 Record Number ?[id number] Date/Time of Procedure ?05/01/2024, 08:45:00 AM Endoscopist ?Nael Hernandez ?? Petroleum Supply Specialist ? Referring Physician(s) ?? ASHISH Humphries Anesthesiologist ? Procedure Performed: COLONOSCOPY Indications for Exam: Surveillance for Hx polyps (subcentimeter tubular adenoma 2013) Instruments: ? [id number] ([id number]) Medications: ?Fentanyl 75 mcg, Versed 4 mg I was in continuous face to face attendance during the administration of moderate sedation services that were monitored by an independent trained observer who had no other duties during the procedure. ? Visualization: ? Good ?Tolerance: Good ?Complications: None ? Extent of Exam: ?terminal ileum ? Limitations: ?? Procedure Technique: A physical exam was performed. Informed consent was obtained from the patient after explaining all the risks (perforation, bleeding, infection and adverse effects to the medicine) , benefits and alternatives to the procedure which the patient appeared to understand and so stated. ??The patient was connected to the monitoring devices and placed in the left lateral position. Continuous oxygen was provided with a nasal cannula and IV medicine administered thru an indwelling cannula. After adequate conscious sedation was achieved, a digital exam was performed and the colonoscope introduced into the rectum and advanced under direct visualization to the terminal ileum which was identified by visual landmarks. The scope was subsequently removed slowly while carefully examining the color, texture, anatomy, and integrity of the mucosa on the way out. In the rectum the scope was retroflexed to evaluate for internal hemorrhoids and anorectal pathology. The patient was subsequently transferred to the recovery area in satisfactory condition. The following findings were noted: Findings: Normal COLONOSCOPY to the terminal ileum with mild sigmoid diverticulosis Endoscopic Diagnosis: Normal colonoscopy Recommendations: Repeat colonoscopy in 10 years for colorectal cancer screening Sedation Start: 09:17:57 AM ?? Sedation End: 09:37:00 AM Signature: Nael Hernandez M.D. This note was electronically signed on 05/01/2024 09:38:56 AM By Nael Hernandez M.D. Cinthia Ortiz [facility] GI PROCEDURE ORDERABLES Delmy l Result from Last 3 Months or Most Recently Relevant to Health Maintenance Insurance [employer] Care Teams Plate Mill Hand Relationship Specialty Start Date End Date [facility] [address] [facility] [place] [place] [address] PCP - General 11/15/23
--- OUTSIDE RECORDS SUMMARY | 2024-08-12 11:36 | XMS_ITS | Encounter Summary ---
Author Organization [facility] Address [address] [place] [address] Care Team Providers Care Higher Education Administrator Name Role Phone Yaw Perea MD Primary Care Provider [phone] Encounter Details Date Type Department Care Team (Late st Contact Info) Description 11/30/[address] [facility] Radiology Results [address] [place], [place] [address] Barbara Rader DNP CN FAMILY LAW SPECIALIST [address] [place] [address] Social History Tobacco Use Types Packs/Day [...] Contact Info) Description 09/23/2024 15:[address] [facility] Mammography [address] [place], [place] [address] documented as of this encounter Procedures Procedure Name Priority Date/Time Associated Diagnosis Comments MA BREAST SCREENING AMY BILATERAL 11/30/2016 10:25 EDT documented in this encounter Results * MA BREAST SCREENING AMY BILATERAL (11/30/2016 10:25 EDT) Anatomical Region Laterality Modality Breast Bilateral Other 11/30/2016 10:2 5 EDT Narrative 11/30/2016 10:26 EDT ? EXAM: MAMMOGRAM/MAMMO BILATERAL SCREEN W ??EX. D/ (1525) ? CLINICAL INFORMATION: ? Z12.31, BILATERAL SCREENING MAMMOGRAM ? TECHNIQUE: ??Full field digital whole breast 2D (C-view) and 3D CC and ? MLO views of both breasts were obtained. CAD technology was utilized. ? FINDINGS: ??The fibroglandular patterns of the breasts are normal. ? There has been no change when compared to previous mammograms and ? there is no mammographic evidence of cancer. The breast tissue is of ? scattered density. ? FINAL ASSESSMENT: ??BILATERAL BREAST - Category 1 - Negative. ?Routine mammographic follow-up is ? recommended. ? These results will be communicated to your patient via a lay letter ? from Radiology. ??If any additional imaging is needed we will contact ? your patient directly. ? REPORT SIGNED IN OTHER VENDOR SYSTEM 12/01/2016 ?Reported By: Pasha Miller MD ? CC: ? Transcribed Date/Time: 11/30/2016 (1026) ? Copy Director: ? Printed Date/Time: 01/18/2019 (1450) ? PAGE 1 ? Signed Report ? Procedure Note Pasha Miller MD - 06/11/2019 EXAM: MAMMOGRAM/MAMMO BILATERAL SCREEN W EX. D/ (1525) CLINICAL INFORMATION: Z12.31, BILATERAL SCREENING MAMMOGRAM TECHNIQUE: Full field digital whole breast 2D (C-view) and 3D CCand MLO views of both breasts were obtained. CAD technology wasutilized. FINDINGS: The fibroglandular patterns of the breasts are normal. There has been no change when compared to previous mammograms and there is no mammographic evidence of cancer. The breast tissue isof scattered density. FINAL ASSESSMENT: BILATERAL BREAST - Category 1 - Negative. Routine mammographic follow-upis recommended. These results will be communicated to your patient via a lay letter from Radiology. If any additional imaging is needed we willcontact your patient directly. REPORT SIGNED IN OTHER VENDOR SYSTEM 12/01/2016 Reported By: Pasha Miller MD CC: Transcribed Date/Time: 11/30/2016 (1026) Copy Director: Printed Date/Time: 01/18/2019 (6139) PAGE 1 Signed Report Barbara Rader DNP CNM FAMILY LAW SPECIALIST IMG MAMMOGRAPHY OR DERABLES Final Result documented in this encounter Visit Diagnoses Not on filedocumented in this encounter Care Teams Higher Education Administrator Relationship Specialty Start Date End Date Yaw Perea MD [address] [place] [address] PCP - General 03/24/11 03/10/20 documented as of this encounter
--- OUTSIDE RECORDS SUMMARY | 2024-08-12 11:36 | XMS_ITS | Encounter Summary ---
Author Organization [facility] Address [address] [place] [address] Care Team Providers Care Move Coordinator Name Role Phone Shirley Nation APRN Primary Care Provider + Reason for Referral * Radiology Services (Routine/Next Available) - Authorization Not Required Specialty Diagnoses / Procedures Referred By Contac t Referred To Contact Diagnoses Visit for screening mammogram Procedures MA BREAST SCREENING AMY BILATERAL Shirley Nation APRN [address] [place] [address] Phone: tel: fax: [facility] Referral ID Status Reason Start Date Expiration Date Visits Requested Visits Authorized [id number] Authorization Not Required 03/29/2022 1 1 Reason for Visit * Radiology Services (Routine/Next Available) - Authorization Not Required Specialty Diagnoses / Procedures Referred By Contac t Referred To Contact Diagnoses Visit for screening mammogram Procedures MA BREAST SCREENING AMY BILATERAL Shirley Nation APRN [address] [place] [address] Phone: tel: fax: [facility] Referral ID Status Reason Start Date Expiration Date Visits Requested Visits Authorized [id number] Authorization Not Required 03/29/2022 1 1 Encounter Details Date Type Department Care Team (Latest Contact Info) Description 05/08/2022 15:47 EDT - 05/08/2022 23:59 EDT Hospital Encounter [facility] Mammography [address] [place] [address] Visit for screening mammogram Discharge Disposition: Home or Self Care Social [...] Code Departure Means Destination Home or Self Care documented in this encounter Plan of Treatment Upcoming Encounters Date Type Department Care Team (Late st Contact Info) Description 09/23/2024 15:50 EST Appointment [facility] Mammography [address] [place] [address] documented as of this encounter Procedures Procedure Name Priority Date/Time Associated Diagnosis Comments MA BREAST SCREENING AMY BILATERAL Routine 05/08/2022 16:12 EDT Visit for screening mammogram documented in this encounter Results * MA BREAST SCREENING AMY BILATERAL (05/08/2022 16:12 EDT) Anatomical Region Laterality Modality Breast Bilateral Mammography 05/09/2022 16:3 5 EDT Impressions 05/09/2022 16:35 EDT Negative, no evidence of malignancy. RECOMMENDATION: Routine screening mammography is recommended. OVERALL ASSESSMENT: BI-RADS 1: Negative These results will be communicated to your patient via a lay letter from Radiology. If any additional imaging is needed we will contact your patient directly. Narrative 05/09/2022 16:35 EDT MA BREAST SCREENING AMY BILATERAL ??05/08/2022 3:50 PM History: routine screening 04/14/21 Comparison: ??Comparison has been made to previous images. Technique: Routine 3D tomosynthesis with synthesized 2D views with CAD Bilateral Breast Composition: There are scattered areas of fibroglandular density. Bilateral Breast Findings: ??No significant masses, calcifications or other abnormalities are seen. Procedure Note Delio Tapia MD - 05/09/2022 MA BREAST SCREENING AMY BILATERAL 05/08/2022 3:50 PM History: routine screening 04/14/21 Comparison: Comparison has been made to previous images. Technique: Routine 3D tomosynthesis with synthesized 2D views with CAD Bilateral Breast Composition: There are scattered areas of fibroglandulardensity. Bilateral Breast Findings: No significant masses, calcifications or otherabnormalities are seen. IMPRESSION Negative, no evidence of malignancy. RECOMMENDATION: Routine screening mammography is recommended. OVERALL ASSESSMENT: BI-RADS 1: Negative These results will be communicated to your patient via a lay letter fromRadiology. If any additional imaging is needed we will contact yourpatient directly. us Shirley Nation APRN IMG MAMMOGRAPHY ORDERABL ES Final Result documented in this encounter Visit Diagnoses Diagnosis Visit for screening mammogram Other screening mammogram documented in this encounter Care Teams Move Coordinator Relationship Specialty Start Date End Date Shirley Nation, KIKI [address] [place] [address] PCP - General 04/06/20 11/14/23 documented as of this encounter
--- OUTSIDE RECORDS SUMMARY | 2024-08-12 11:36 | XMS_ITS | Referral Summary ---
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 Social History Tobacco Use Types Packs/Day Years [...] 15:52 EDT Sexual Orientation Not on file Last Filed Vital Signs Vital Sign Reading [...] Contact Info) Description 09/23/2024 15:50 EST Appointment [facility] Mammography [address] [place] [address] Procedures Procedure Name Priority Date/Time Associated Diagnosis Comments COLONOSCOPY Routine 05/01/2024 8:45 EDT Encounter for screening colonoscopy from Last 3 Months or Most Recently Relevant to Health Maintenance Results * COLONOSCOPY (05/01/2024 8:45 EDT) Anatomical Region Laterality Modality Endoscopy Narrative 05/01/2024 8:45 EDT [facility] ?? [address] [address] ?? Patient Name ?ELIZABETH HURLEY Date of ?1960 Record Number ?[id number] Date/Time of Procedure ?05/01/2024, 08:45:00 AM Endoscopist ?Nael Hernandez ?? Dehydrating Press Operator ? Referring Physician(s) ?? ASHISH Humphries Anesthesiologist ? Procedure Performed: COLONOSCOPY Indications for Exam: Surveillance for Hx polyps (subcentimeter tubular adenoma 2012) Instruments: ? [id number] ([id number]) Medications: ?Fentanyl 75 mcg, Versed 4 mg [...] AM By Nael Hernandez M.D. Cinthia Ortiz [facility] GI PROCEDURE ORDERABLES Delmy l Result from Last 3 Months or Most Recently Relevant to Health Maintenance Insurance [facility] Care Teams Coding Support Specialist Relationship Specialty Start Date End Date [facility] [address] [place] [address] PCP - General 11/15/23
--- OUTSIDE RECORDS SUMMARY | 2024-08-12 11:36 | XMS_ITS | Encounter Summary ---
Author Organization [facility] Address [address] [place] [address] Care Team Providers Care Volleyball Referee Name Role Phone Yaw Perea MD Primary Care Provider [phone] Encounter Details Date Type Department Care Team (Late st Contact Info) Description 05/02/2011 Abstract Used for ABSTRACTING Data [phone] Yaw Perea MD [address] [place] [address] Social History Tobacco Use Types Packs/Day [...] Contact Info) Description 09/23/2024 15:50 EST Appointment [facility] Mammography [address] [place], [place] [address] documented as of this encounter Visit Diagnoses Not on filedocumented in this encounter Care Teams Volleyball Referee Relationship Specialty Start Date End Date Yaw Perea MD [address] [place], [place] [phone] PCP - General 03/24/11 03/10/20 documented as of this encounter
--- OUTSIDE RECORDS SUMMARY | 2024-08-12 11:36 | XMS_ITS | Encounter Summary ---
Author Organization [facility] Address [address] [place] [address] Care Team Providers Care Serging Machine Operator Automatic Name Role Phone Yaw Perea MD Primary Care Provider [phone] Encounter Details Date Type Department Care Team (Latest Contact Info) Description 11/29/2016 22:03 EDT - 11/29/2016 23:59 [place] [address] Unknown, Provider, Discharge Disposition: Home or Self [...] Code Departure Means Destination Home or Self [facility] documented in this encounter Plan of Treatment Upcoming Encounters Date Type Department Care Team (Late st Contact Info) Description 09/23/2024 15:50 EST Appointment [facility] Mammography [address] [place], [place] [phone] documented as of this encounter Visit Diagnoses Not on filedocumented in this encounter Care Teams Serging Machine Operator Automatic Relationship Specialty Start Date End Date Yaw Perea MD [address] [place] [address] PCP - General 03/24/11 03/10/20 documented as of this encounter
--- OUTSIDE RECORDS SUMMARY | 2024-08-12 11:36 | XMS_ITS | Encounter Summary ---
Author Organization [facility] Address [address] [place] [address] Care Team Providers Care Jewelry Bench Worker Name Role Phone Shirley Nation APRN Primary Care Provider + Reason for Referral * Radiology Services (Routine/Next Available) - Authorization Not Required Specialty Diagnoses / Procedures Referred By Contac t Referred To Contact Diagnoses Encounter for screening mammogram for malignant neoplasm of breast Procedures MA BREAST SCREENING AMY BILATERAL Shirley Nation APRN [address] [place] [address] Phone: tel: fax: [facility] Referral ID Status Reason Start Date Expiration Date Visits Requested Visits Authorized [id number] Authorization Not Required 06/13/2023 1 1 Reason for Visit * Radiology Services (Routine/Next Available) - Authorization Not Required Specialty Diagnoses / Procedures Referred By Contac dar Referred To Contact Diagnoses Encounter for screening mammogram for malignant neoplasm of breast Procedures MA BREAST SCREENING AMY BILATERAL Shirley Nation APRN [address] [place] [address] Phone: tel: fax: [facility] Referral ID Status Reason Start Date Expiration Date Visits Requested Visits Authorized [id number] Authorization Not Required 06/13/2023 1 1 Encounter Details Date Type Department Care Team (Latest Contact Info) Description 06/14/2023 15:10 EST - 06/14/2023 23:59 EST Hospital Encounter [facility] Mammography [address] [place] [address] Encounter for screening mammogram for malignant neoplasm of breast Discharge Disposition: Home or Self Care Social [...] Contact Info) Description 09/23/2024 15:50 EST Appointment [facility] Mammography [address] [place] [address] documented as of this encounter Procedures Procedure Name Priority Date/Time Associated Diagnosis Comments MA BREAST SCREENING AMY BILATERAL Routine 06/14/2023 15:43 EST Encounter for screening mammogram for malignant neoplasm of breast documented in this encounter Results * MA BREAST SCREENING AMY BILATERAL (06/14/2023 15:43 EST) Anatomical Region Laterality Modality Breast Bilateral Mammography 06/15/2023 12:5 2 EST Impressions 06/15/2023 12:52 EST Negative, no evidence of malignancy. RECOMMENDATION: Routine screening mammography is recommended. OVERALL ASSESSMENT: BI-RADS 1: Negative These results will be communicated to your patient via a lay letter from Radiology. If any additional imaging is needed we will contact your patient directly. [id number] Narrative 06/15/2023 12:52 EST MA BREAST SCREENING AMY BILATERAL ??06/14/2023 3:10 PM History: Encounter for screening mammogram for malignant neoplasm of breast;Z12.31:Encounter for screening mammogram for malignant neoplasm of breast Comparison: ??Comparison has been made to previous images . ? Technique: Routine 3D tomosynthesis with synthesized 2D views with CAD Breast Composition: There are scattered areas of fibroglandular density. Bilateral Breast Findings: ??No significant masses, calcifications or other abnormalities are seen. Procedure Note Baron Reis MD - 06/15/2023 MA BREAST SCREENING AMY BILATERAL 06/14/2023 3:10 PM History: Encounter for screening mammogram for malignant neoplasm ofbreast;Z12.31:Encounter for screening mammogram for malignant neoplasm ofbreast Comparison: Comparison has been made to previous images . Technique: Routine 3D tomosynthesis with synthesized 2D views with CAD Breast Composition: There are scattered areas of fibroglandular density. Bilateral Breast Findings: No significant masses, calcifications or otherabnormalities are seen. IMPRESSION Negative, no evidence of malignancy. RECOMMENDATION: Routine screening mammography is recommended. OVERALL ASSESSMENT: BI-RADS 1: Negative These results will be communicated to your patient via a lay letter fromRadiology. If any additional imaging is needed we will contact yourpatient directly. [id number] Shirley Nation APRN IMG MAMMOGRAPHY ORDERABL ES Final Result documented in this encounter Visit Diagnoses Diagnosis Encounter for screening mammogram for malignant neoplasm of breast Other screening mammogram documented in this encounter Care Teams Jewelry Bench Worker Relationship Specialty Start Date End Date Shirley Nation APRN [address] [place] [address] [place] [address] PCP - General 04/06/20 11/14/23 documented as of this encounter
--- OUTSIDE RECORDS SUMMARY | 2024-08-12 11:36 | XMS_ITS | Encounter Summary ---
Author Organization [facility] Address [address] [place] [address] Care Team Providers Care Ballaster Name Role Phone Yaw Perea MD Primary Care Provider [phone] Encounter Details Date Type Department Care Team (Late st Contact Info) Description 12/11/2017 Historical Results Only [facility] Radiology Results [address] [place], [place] [address] Shirley Nation, FLATTENING MACHINE OPERATOR [address] [place] [address] Social History Tobacco Use Types [...] Contact Info) Description 09/23/2024 15:50 EST Appointment [facility] Mammography [address] [place] [address] documented as of this encounter Procedures Procedure Name Priority Date/Time Associated Diagnosis Comments MA BREAST SCREENING AMY BILATERAL 12/11/2017 14:53 EDT documented in this encounter Results * MA BREAST SCREENING AMY BILATERAL (12/11/2017 14:53 EDT) Anatomical Region Laterality Modality Breast Bilateral Other 12/11/2017 14:5 3 EDT Narrative 12/11/2017 14:53 EDT ? EXAM: MAMMOGRAM/MAMMO BILATERAL SCREEN W ??EX. D/ (1529) ? CLINICAL INFORMATION: ? Z12.31 SCREENING ? TECHNIQUE: ??Full field digital whole [...] is of ? scattered density. ? FINAL ASSESSMENT BILATERAL BREAST: ??Category 1 - Negative. Routine ? mammographic follow-up is recommended. ? These results will be communicated to your patient via a lay letter ? from Radiology. ??If any additional imaging is needed we will contact ? your patient directly. ? REPORT SIGNED IN OTHER VENDOR SYSTEM 12/11/2017 ?Reported By: Delio Tapia MD ? CC: ? Transcribed Date/Time: 12/11/2017 (1453) ? Autocad Operator: ? Printed Date/Time: 01/24/2019 (1441) ? PAGE 1 ? Signed Report ? Procedure Note Delio Tapia MD - 06/12/2019 EXAM: MAMMOGRAM/MAMMO BILATERAL SCREEN W EX. D/ (1529) CLINICAL INFORMATION: Z12.31 SCREENING TECHNIQUE: Full field digital whole breast 2D (C-view) and 3D CCand MLO views of both breasts were obtained. CAD technology wasutilized. FINDINGS: The fibroglandular patterns of the breasts are normal. There has been no change when compared to previous mammograms and there is no mammographic evidence of cancer. The breast tissue isof scattered density. FINAL ASSESSMENT BILATERAL BREAST: Category 1 - Negative. Routine mammographic follow-up is recommended. These results will be communicated to your patient via a lay letter from Radiology. If any additional imaging is needed we willcontact your patient directly. REPORT SIGNED IN OTHER VENDOR SYSTEM 12/11/2017 Reported By: Delio Tapia MD CC: Transcribed Date/Time: 12/11/2017 (6355) Autocad Operator: Printed Date/Time: 01/24/2019 (8863) PAGE 1 Signed Report Shirley Nation FLATTENING MACHINE OPERATOR IMG MAMMOGRAPHY ORDERABL ES Final Result documented in this encounter Visit Diagnoses Not on filedocumented in this encounter Care Teams Ballaster Relationship Specialty Start Date End Date Yaw Perea MD [address] [place] [address] PCP - General 03/24/11 03/10/20 documented as of this encounter
--- OUTSIDE RECORDS SUMMARY | 2024-08-12 11:36 | XMS_ITS | Encounter Summary ---
Author Organization [facility] Address [address] [place] [address] Care Team Providers Care Charge Gang Weigher Name Role Phone Yaw Perea MD Primary Care Provider Encounter Details Date Type Department Care Team (Late Contact Info) Description 05/02/2011 Abstract Used for ABSTRACTING Data [phone] Yaw Perea MD [address] [place] [address] Social History Tobacco Use Types [...] Contact Info) Description 09/23/2024 15:50 EST Appointment [facility] Mammography [address] [place] [address] documented as of this encounter Visit Diagnoses Not on filedocumented in this encounter Historical Medications * This list may reflect changes made after this encounter. simvastatin (ZOCOR) 40 mg tablet Take 1 Tablet by mouth daily. added in this encounter Care Teams Charge Gang Weigher Relationship Specialty Start Date End Date Yaw Perea MD [address] [place], [place] [id number] PCP - General 03/24/11 03/10/20 documented as of this encounter
--- OUTSIDE RECORDS SUMMARY | 2024-08-12 11:36 | XMS_ITS | Encounter Summary ---
Author Organization [facility] Address [address] [place] [address] Care Team Providers Care Approver Name Role Phone Petty Carcamo [facility]- Primary Care Provider [phone] Reason for Referral * Referral (Routine/Next Available) - Authorization Not Required Specialty Diagnoses / Procedures Referred By Bessy dodge Referred To Contact Diagnoses Encounter for screening colonoscopy Procedures COLONOSCOPY Cinthia Ortiz FNP [address] [place] [address] Phone: tel: fax: Referral ID Status Reason Start Date Expiration Date Visits Requested Visits Authorized [id number] Authorization Not Required 09/07/2023 1 1 Reason for Visit * Auth/Cert (Routine) Specialty Diagnoses / Procedures Referred By Bessy dodge Referred To Contact Referral ID Status Reason Start Date Expiration Date Visits Re quested Visits Authorized [id number] 1 1 Encounter Details Date Type Department Care Team (Latest Contact Info) Description 05/01/2024 7:43 EDT - 05/01/2024 23:59 EDT Hospital Encounter [facility] Endoscopy [address] [place], [place] [address] Nael Hernandez MD [facility] [address] [place] [address] Encounter for screening colonoscopy Discharge Disposition: Home or Self Care Social [...] Blood Pressure 109/80 05/01/2024 1016 EDT Pulse - - Temperature 36.3 ??C (97.4 ??F) 05/01/2024 1016 EDT Respiratory Rate 12 05/01/2024 1016 EDT Oxygen Saturation 99% 05/01/2024 1016 EDT Inhaled Oxygen Concentration - - Weight - - Height - - Body Mass Index - - documented in this encounter Medications at Time of Discharge cholecalciferol, Vitamin D3, 25 mcg (1,000 unit) tablet Take 1 Tablet by mouth daily. estradioL [address] 10 mcg vaginally twice a week. simvastatin (ZOCOR) 40 mg tablet Take 1 Tablet by mouth daily. documented as of this encounter Discharge Disposition Disposition Code Departure Means Destination Home or Self Care documented in this encounter H&P Notes * Nael Hernandez MD - 05/01/2024 0845 EDT Endoscopy Sedation for Procedure History & Physical Date: 05/01/2024 Time: 9:17 Location: [facility] Endoscopy Planned Procedure: Colonoscopy Chief Complaint/Indications for Procedure: Surveillance for Hx polyps History Previous Complication with Sedation and/or Anesthesia? No Allergies: No Known Allergies Current Medications: Current Outpatient Medications Medication cholecalciferol, Vitamin D3, 25 mcg (1,000 unit) tablet estradioL 10 mcg insert simvastatin (ZOCOR) 40 mg tablet Current Facility-Administered Medications Medication Route Frequency sodium chloride 0.9 % (NS) infusion intravenous PRN Or lactated ringers (LR) infusion intravenous PRN lidocaine (PF) 10 mg/mL (1 %) injection 2 mg intradermal PRN lidocaine (PF) 10 mg/mL (1 %) injection 2 mg intradermal PRN ondansetron (PF) (ZOFRAN) injection 4 mg intravenous Once PRN sodium chloride 0.9 % (flush) flush 5 mL intravenous PRN Past Medical History: History reviewed. No pertinent past medical history. Social History: History reviewed. No pertinent surgical history. Social History Tobacco Use Smoking status: Never Smokeless tobacco: Not on file Substance Use Topics Alcohol use: No Family History: Family History Problem Relation Age of Onset Thyroid Disease Sister Review of Systems as pertinent: Physical Exam Vital Signs: BP 115/81 Temp 36.4 ??C (97.6 ??F) (Oral) Resp 16 SpO2 99% Heart Examination: Cardiac Regularity: Regular Respiratory Examination: Respiratory Pattern: Regular Breath Sounds Right: Clear Breath Sounds Left: Clear Abdominal Examination: Additional physical exam related to the proposed procedure, patient activity, disease state and treatment as pertinent: Assessment Previous complications with sedation or anesthesia?: No Airway Concerns: None/NA Anesthesia Classification: ASA 1 Plan: Proceed with sedation for procedure Fasting Time: Date of Last Liquid: 05/01/24 Time of Last Liquid: 0600 Date of Last Solid: 04/30/24 Time of Last Solid: 1000 Patient Appropriate Candidate for Planned Sedation?: Yes Nael Hernandez MD 05/01/2024 9:17 documented in this encounter Plan of Treatment Upcoming Encounters Date Type Department Care Team (Late st Contact Info) Description 09/23/2024 15:50 [place] [address] documented as of this encounter Procedures Procedure Name Priority Date/Time Associated Diagnosis Comments ECG REPORT - SCANNED 05/05/2024 11:10 EDT COLONOSCOPY Routine 05/01/2024 8:45 EDT Encounter for screening colonoscopy documented in this encounter Results * ECG REPORT - SCANNED (05/05/2024 11:10 EDT) 05/05/2024 11:1 0 EDT us Scan 2 Park Guide PROCEDURE/MINOR SURGICAL OR DERABLES Final Result * COLONOSCOPY (05/01/2024 8:45 EDT) Anatomical Region Laterality Modality Endoscopy Narrative 05/01/2024 8:45 EDT [facility] ?? [address], [place], [place] [address] ?? Patient Name ?ELIZABETH HURLEY Date of ?1960 Record Number ?[id number] Date/Time of Procedure ?05/01/2024, 08:45:00 AM Endoscopist ?Nael Hernandez ?? Stretcher Helper ? Referring Physician(s) ?? ASHISH Humphries Anesthesiologist ? Procedure Performed: COLONOSCOPY Indications for Exam: Surveillance for Hx polyps (subcentimeter tubular adenoma 2012) Instruments: ? [facility]-[id number] ([id number]) Medications: ?Fentanyl 75 mcg, Versed 4 mg [...] 05/01/2024 09:38:56 AM By Nael Hernandez M.D. us Cinthia Ortiz TRICHOLOGIST GI PROCEDURE ORDERABLES Delmy l Result documented in this encounter Visit Diagnoses Diagnosis Encounter for screening colonoscopy Special screening for malignant neoplasms, colon documented in this encounter Administered Medications Inactive Administered Medications - up to 3 most recent administrations Medication Order MAR Action Action Date Dose Rate Site fentaNYL citrate (PF) injection intravenous, As needed, Starting on Valarie 05/01/24 at 0919, Until Valarie 05/01/24 at 0921, Routine, Intraprocedure Given 05/01/2024 9:21 EDT 25 mcg Given 05/01/2024 9:19 EDT 50 mcg lactated ringers (LR) infusion 30 mL/hr, intravenous, PRN, Starting on Valarie 05/01/24 at 0759, Until 05/03/24 at 0200, Routine, Preprocedure New Bag 05/01/2024 8:12 EDT 30 mL/hr 30 mL/hr lactated ringers BOLUS 500 mL 500 mL, intravenous, NOW X1, 1 dose, On Valarie 05/01/24 at 0945, STAT, Intraprocedure New Bag 05/01/2024 9:23 EDT 500 mL midazolam (VERSED) injection intravenous, As needed, Starting on Valarie 05/01/24 at 0919, Until Valarie 05/01/24 at 0921, Routine, Intraprocedure Given 05/01/2024 9:21 EDT 2 mg Given 05/01/2024 9:19 EDT 2 mg sodium chloride 0.9 % (flush) flush 5 mL 5 mL, intravenous, PRN, Starting on Valarie 05/01/24 at 0759, Until 05/03/24 at 0200, Line Care, Routine, Preprocedure Given 05/01/2024 8:12 EDT 5 mL documented in this encounter Historical Medications * This list may reflect changes made after this encounter. cholecalciferol, Vitamin D3, 25 mcg (1,000 unit) tablet Take 1 Tablet by mouth daily. added in this encounter Orders Medications Ordered That Romeo ht Not Have Been Administered Count Last Ordered Date First Ordered Date lidocaine (PF) 10 mg/mL (1 % ) injection 2 mg 2 05/01/2024 ondansetron (PF) (ZOFRAN) injection 4 mg 1 05/01/2024 sodium chloride 0.9 % (NS) infusion 1 05/01 documented in this encounter Care Teams Approver Relationship Specialty Start Date End Date Gayle [facility] [address] [place] [place] [address] PCP - General 11/15/23 documented as of this encounter
--- OUTSIDE RECORDS SUMMARY | 2024-08-12 11:36 | XMS_ITS | Encounter Summary ---
Author Organization [facility] Address [address] [place] [address] Care Team Providers Care Data Network Architect Name Role Phone Yaw Perea MD Primary Care Provider [phone] Encounter Details Date Type Department Care Team (Late st Contact Info) Description 02/07/2019 Results Only [facility] [phone] Janae Nation, HEALTH RECORD TECHNICIAN [address] [place] [address] Social History Tobacco Use Types [...] Contact Info) Description 09/23/2024 15:50 EST Appointment [facility] Mammography [address] [place] [address] documented as of this encounter Procedures Procedure Name Priority Date/Time Associated Diagnosis Comments PAP TEST- RESULT ONLY Routine 02/04/2019 0:00 EDT documented in this encounter Results * PAP TEST- RESULT ONLY (02/04/2019 0:00 EDT) Pathology Report: CYTOPATHOLOGY REPORT Reports generated via electronic interface contain original data; however they are lacking the format of the original report. Caution should be taken when reading/interpret ing unformatted reports. Name: ? ELIZABETH HURLEY ? Accession #: ? [id number] : ? 1960 (Age: 59) ??F ?Collect Date: ? 02/04/2019 Location: ? [facility] ? Receive Date: ? 02/07/2019 Provider: ?JANAE NATION HEALTH RECORD TECHNICIAN Copy to: ? Specimen/Source: ?Pap Test, Cervix, ThinPrep Imaging System with manual evaluation Last Menstrual Period: ? Other: ? Additional clinical information: Z00.00 ? SPECIMEN ADEQUACY ? Unsatisfactory for Evaluation, - insufficient numbers of squamous epithelial cells (less than 10% of expected cellularity) GENERAL CATEGORIZATION ? Specimen processed and examined, but unsatisfactory for evaluation of epithelial abnormality. Recommend Pap test in 2-4 months as stated in ASCCP's 2012 Updated Guidelines. HPV testing will not be performed due to the potential for false negative results. ? Document reviewed and electronically signed by: ? JESUS Young(ASCP) ? Report Date: ??02/11/2019 14:39 End of Report [facility] 02/04/2019 02/07/2019 us Janae Nation HEALTH RECORD TECHNICIAN PATHOLOGY ORDERABLES Fin al Result [facility] [address] [place] [address] documented in this encounter Visit Diagnoses Not on filedocumented in this encounter Care Teams Data Network Architect Relationship Specialty Start Date End Date Yaw Perea MD [address] [place] [address] PCP - General 03/24/11 03/10/20 documented as of this encounter
--- OUTSIDE RECORDS SUMMARY | 2024-08-12 11:36 | XMS_ITS | Encounter Summary ---
Author Organization [facility] Address [address] [place] [address] Care Team Providers Care Service Desk Lead Name Role Phone Yaw Perea MD Primary Care Provider [phone] Encounter Details Date Type Department Care Team (Late st Contact Info) Description 05/22/2019 Results Only [facility] [phone] Janae Nation, ZOOKEEPER [address] [place] [address] Social History Tobacco Use Types [...] Contact Info) Description 09/23/2024 15:50 EST Appointment [facility] M[facility] [address] [place] [address] documented as of this encounter Procedures Procedure Name Priority Date/Time Associated Diagnosis Comments PAP TEST- RESULT ONLY Routine 05/22/2019 0:00 EDT documented in this encounter Results * PAP TEST- RESULT ONLY (05/22/2019 0:00 EDT) Pathology Report: CYTOPATHOLOGY REPORT Reports generated via electronic interface contain original data; however they are lacking the format of the original report. Caution should be taken when reading/interpreti ng unformatted reports. Name: ? ELIZABETH HURLEY ? Accession #: ? [id number] ? : ? 1960 (Age: 59) ??F ?Collect Date: ? 05/22/2019 ? Location: ? [facility] ? Receive Date: ? 05/26/2019 ? Provider: JANAE NATION ZOOKEEPER Copy to: ? Final Report SPECIMEN ADEQUACY ? Satisfactory for Evaluation - transformation zone component present - scant squamous epithelial component GENERAL CATEGORIZATION ? Negative for Intraepithelial Lesion or Malignancy ?? Other: Additional clinical information: Z12.4 Additional clinical information: Last pap insufficient cells Specimen/Source: ??Pap Test, Cervix, ThinPrep Imaging System with manual evaluation Document reviewed and electronically signed by: ? Elis Day, CT(ASCP)(IAC) ? Report ??Date: 05/28/2019 15:06 HPV with Pap Test ? Date Ordered: ? 05/28/2019 ? Status: ?? Signed Out ?Date Complete: ? 05/29/2019 ? By: ??System Interface ? Date Reported: ? 05/29/2019 ? Interpretation RESULT: Negative for HPV. No E6 or E7 mRNA is detected from HPV types 16,18,31,33,35, 39,45,51,52,56,58, 59,66, and 68 by quotation clerk mediated amplification. Comments Document reviewed and electronically signed by: ? System Interface ? Report date: 05/29/2019 By the signature above, the attending physician certifies that he/she has personally conducted a gross and/or microscopic examination of the described specimens and rendered or confirmed the above diagnosis. End of Report [facility] 05/22/2019 05/26/2019 us Janae Nation ZOOKEEPER PATHOLOGY ORDERABLES Fin al Result [facility] [address] [place] [address] documented in this encounter Visit Diagnoses Not on filedocumented in this encounter Care Teams Service Desk Lead Relationship Specialty Start Date End Date Yaw Perea MD [address] [place] [address] PCP - General 03/24/11 03/10/20 documented as of this encounter
--- OUTSIDE RECORDS SUMMARY | 2024-08-12 11:36 | XMS_ITS | Encounter Summary ---
Author Organization [facility] Address [address] [place] [address] Care Team Providers Care Certified Surgical Tech/First Assistant Name Role Phone Yaw Perea MD Primary Care Provider Encounter Details Date Type Department Care Team (Late st Contact Info) Description 03/07/2013 Historical Results Only [facility] - Main [place] [address] [place] [phone] Nadeem Dial MD Social History Tobacco Use Types Packs/Day Years [...] Description 09/23/2024 15:50 EST Appointment [facility] Mammography [address] [place] [address] documented as of this encounter Procedures Procedure Name Priority Date/Time Associated Diagnosis Comments SURGICAL PATHOLOGY Routine 03/07/2013 documented in this encounter Results * SURGICAL PATHOLOGY (03/07/2013) 03/07/2013 03/07/2013 16: 33 EDT Narrative [facility] - 03/10/2013 14:16 EDT ----- ------- Name: ELIZABETH HURLEY ? : [birth year] ?Age/Sex: 59/F ?Unit#: [id number] ? Loc: END ? Status: DEP CLI ?? Reg Date: 03/07/13 ? Pt.Phone Number: ? ----- ------- Specimen: [id number] ? STATUS: SOUT ?Spec Date:03/07/13 ? Physician Copies: ?Nadeem Dial MD ?? Tissues: A ?? Gastrointestinal Tract (RECTUM) ?Yaw Perea MD ? CPT: 51325 ?? Units: ??1 ?FINAL DIAGNOSIS ? Rectum, polyp, biopsy; ? - Tubular adenoma. ? GROSS DESCRIPTION ? Received in formalin labeled with the patient's name and rectal polyp is a ? 0.5 cm polypoid mucosal fragment, e.s. following additional fixation in ? Bouin's. ??CP ?? PREOP DX/CLINICAL HISTORY ?Screening colonoscopy Signed ____(signature on file)____ Sana Shearer M.D. 03/10/13 By the signature above, the attending physician certifies that he/she has personally conducted a gross and/or microscopic examination of the described specimens and rendered or confirmed the above diagnosis. Test Performed by [facility], [address] [place], [place] [id number] Project Controller: Sana Shearer MD PHD ----- ------- us Nadeem Dial MD PATHOLOGY ORDERABLES Final Re [facility] documented in this encounter Visit Diagnoses Not on filedocumented in this encounter Care Teams Certified Surgical Tech/First Assistant Relationship Specialty Start Date End Date Yaw Perea MD [address] [place] [address] PCP - General 03/24/11 03/10/20 documented as of this encounter
--- OUTSIDE RECORDS SUMMARY | 2024-08-12 11:36 | XMS_ITS | Encounter Summary ---
Author Organization [facility] Address [address] [place] [address] Care Team Providers Care Resident Care Aide Name Role Phone Yaw Perea MD Primary Care Provider [phone] Encounter Details Date Type Department Care Team (Late st Contact Info) Description 05/10/2011 Historical Results Only [facility] - Main [place] [address] [place] [address] Ywa Perea MD [address] [place] [address] Social History Tobacco Use Types Packs/Day [...] Contact Info) Description 09/23/2024 15:50 EST Appointment [facility] Mammography [address] [place], [place] [address] documented as of this encounter Procedures Procedure Name Priority Date/Time Associated Diagnosis Comments PAP TEST Routine 05/10/2011 16:41 EDT documented in this encounter Results * PAP TEST (05/10/2011 16:41 EDT) 05/10/2011 16:4 1 EDT 05/11/2011 15:07 EDT Narrative [facility] - 05/15/2011 10:54 EDT ----- ------- Name: ELIZABETH HURLEY ? : [birth year] ?Age/Sex: 59/F ?Unit#: [id number] ? Loc: MHC ? Status: REG POV ?? Reg Date: 05/10/11 ? Pt.Phone Number: ? ----- ------- Specimen: [id number] ?STATUS: SOUT ?Spec Date:05/10/11 ? Physician Copies: ?Yaw Perea MD ? Tissues: ? Cervical/Endo Pap ? CPT: 07091 ?? Units: ??1 ----- ------- ? CYTOLOGY DIAGNOSIS SPECIMEN ADEQUACY: ?Satisfactory for evaluation. Transformation zone component present. GENERAL CATEGORIZATION: ?Negative for Intraepithelial Lesion or Malignancy DESCRIPTIVE DIAGNOSIS: ?? Shift in tara present suggestive of bacterial vaginosis. RECOMMENDATIONS/COMMENTS: ?None. ----- ------- ?HPV DNA RESULTS ?? 05/10/11 1641 HPV DNA RESULT ??NEG ? Negative for HPV types 16, 18, 31, 33, 35, 39, 45, 51, 52, ? 56, 58, 59, 66, 68. ? Method: Cervista HPV HR (High Risk) DNA test. ----- ------- ORDER QUERIES: LMP: 09/2010 - 09/2010 ? N Post ? N ??PREVIOUS ATYPICAL: N BCP/HRT? N Rad Rx? N IUD? N ??PAP PLUS HPV? Y ??REFLEX TO HR-HPV IF ASCUS ?? REFLEX TO HPV 16/18 IF HPV POS/PAP NEG ?? HPV REGARDLESS?RFLX HPV IF LSIL ?? IF ASCUS DO HPV? Y Signed Joey Parmar CT(ASCP) 05/15/11 By the signature above, the attending physician certifies that he/she has personally conducted a gross and/or microscopic examination of the described specimens and rendered or confirmed the above diagnosis. Test Performed by [facility], [address] [place] [address] Commercial Fisher: Sana Shearer MD PHD ----- ------- us Yaw Perea MD PATHOLOGY ORDERABLES Final Resul t [facility] documented in this encounter Visit Diagnoses Not on filedocumented in this encounter Care Teams Resident Care Aide Relationship Specialty Start Date End Date Yaw Perea MD [address] [place], [place] [phone] PCP - General 03/24/11 03/10/20 documented as of this encounter
--- OUTSIDE RECORDS SUMMARY | 2024-08-12 11:36 | XMS_ITS | Encounter Summary ---
Author Organization [facility] Address [address] [place] [address] Care Team Providers Care Template Checker Name Role Phone Yaw Perea MD Primary Care Provider Encounter Details Date Type Department Care Team (Latest Contact Info) Description 08/26/2018 10:14 EST - 08/26/2018 23:59 [place] [address] Unknown, Provider, Discharge Disposition: Home or Self [...] Info) Description 09/23/2024 15:[address] [facility] Mammography [address] [place] [address] documented as of this encounter Visit Diagnoses Not on filedocumented in this encounter Care Teams Template Checker Relationship Specialty Start Date End Date Yaw Perea MD [address] [place] [address] PCP - General 03/24/11 03/10/20 documented as of this encounter
--- OUTSIDE RECORDS SUMMARY | 2024-08-12 11:36 | XMS_ITS | Encounter Summary ---
Author Organization [facility] Address [address] [place] [address] Care Team Providers Care Human Insights Lead Ads Marketing Name Role Phone Yaw Perea MD Primary Care Provider [phone] Encounter Details Date Type Department Care Team (Late Contact Info) Description 11/29/[address] [facility] Radiology Results [address] [place], [place] [id number] Barbara Rader DNP CNM EDUCATION DEPARTMENT CHAIR [address] [place], [place] [phone] Social History Tobacco Use Types Packs/Day Years [...] Info) Description 09/23/2024 15:[address] [facility] Mammography [address] [place], [place] [address] documented as of this encounter Visit Diagnoses Not on filedocumented in this encounter Care Teams Human Insights Lead Ads Marketing Relationship Specialty Start Date End Date Yaw Perea MD [address] [place] [address] PCP - General 03/24/11 03/10/20 documented as of this encounter
--- OUTSIDE RECORDS SUMMARY | 2024-08-12 11:36 | XMS_ITS | Encounter Summary ---
Author Organization [facility] Address [address] [place] [address] Care Team Providers Care C Java Developer Name Role Phone Yaw Perea MD Primary Care Provider [phone] Encounter Details Date Type Department Care Team (Late st Contact Info) Description 12/10/2017 Historical Results Only [facility] Radiology Results [address] [place], [place] [phone] Shirley Nation, WOODEN SHADE HARDWARE INSTALLER [address] [place] [address] Social History Tobacco Use Types [...] Contact Info) Description 09/23/2024 15:50 EST Appointment [facility] Mammography [address] [place] [address] documented as of this encounter Visit Diagnoses Not on filedocumented in this encounter Care Teams C Java Developer Relationship Specialty Start Date End Date Yaw Perea MD [address] [place] [address] PCP - General 03/24/11 03/10/20 documented as of this encounter
[2024-08-12 17:30] LABS: Anion Gap 6.7 mmol/L (3-11); BUN 18 mg/dL (7-18); CO2 29.3 mmol/L (21.0-32.0); CREATININE 0.7 mg/dL (0.55-1.02); Calcium 9.2 mg/dL (8.5-10.1); Calculated LDL 122 mg/dL (<100); Chloride 106 mmol/L (98-107); Cholesterol 206 mg/dL (<200); Estimated GFR 97.72 (mL/min/1.73m2); Glucose 97 mg/dL (74-106); HDL Cholesterol 70 mg/dL (40-60); Potassium 4.6 mmol/L (3.5-5.1); Sodium 142 mmol/L (136-145); Triglyceride 72 mg/dL (<150)
== END 2024-08-12 11:29 | disposition home or self-care (01) ==
LOC: NCHCN 11:28
PROVIDERS: PCP Nurse Practitioner Family; Visit Provider Nurse Practitioner Family
DX: E78.5 Hyperlipidemia, unspecified (principal)
CPT/HCPCS: 80048; 80061

== ENCOUNTER 2024-08-19 10:16 | Outpatient (REF) | payer OTHER, SELFPAY ==
--- NOTE | 2024-08-19 08:50 | PAPFT_PTH ---
PATIENT: Elizabeth Hurley [facility] U[facility][id number] AGE/SX: 64/F ROOM: RE08/19/[address]: Cinthia Ortiz : 1960 BED: DIS: 08/19/2024 SPEC #: [id number] RECD: 08/19/24 17:36 STATUS: SOFIE REGeeta #: [id number] SKYLER: 08/19/24 08:[address]: Cinthia Ortiz DEPT: [facility] Cytology RECD BY: Valerie Pleitez Tissues: 1 - CX/ENDOCX FOR PAP SMEARS Procedures: PAP THIN PREP/UVM Screening HPV DNA PROBE Comments: [id number] (HPV 16 & 18/45) (CHLAMYDIA/GC)
--- OUTSIDE RECORDS SUMMARY | 2024-08-19 10:18 | XMS_ITS | Referral Summary ---
Author Organization [facility] Address [address] [place] [address] Care Team Providers Care Spray Unit Feeder Name Role Phone [facility] Primary Care Provider [phone] Allergies No known active allergies Medications simvastatin [...] Contact Info) Description 09/23/2024 15:50 EST Appointment [facility] Mammography [address] [place] [address] Procedures Procedure Name Priority Date/Time Associated Diagnosis Comments COLONOSCOPY Routine 05/01/2024 8:45 EDT Encounter for screening colonoscopy from Last 3 Months or Most Recently Relevant to Health Maintenance Results * COLONOSCOPY (05/01/2024 8:45 EDT) Anatomical Region Laterality Modality Endoscopy Narrative 05/01/2024 8:45 EDT [facility] ?? [address] [address] ?? Patient Name ?ELIZABETH HURLEY Date of ?1960 Record Number ?[id number] Date/Time of Procedure ?05/01/2024, 08:45:00 AM Endoscopist ?Nael Hernandez ?? Catering Driver ? Referring Physician(s) ?? ASHISH Humphries Anesthesiologist ? Procedure Performed: COLONOSCOPY Indications for Exam: Surveillance for Hx polyps (subcentimeter tubular adenoma 2012) Instruments: ? [id number] ([id number]) Medications: ?Fentanyl 75 mcg, Versed 4 mg [...] AM By Nael Hernandez M.D. Cinthia Ortiz [facility] GI PROCEDURE ORDERABLES Delmy l Result from Last 3 Months or Most Recently Relevant to Health Maintenance Insurance [facility] Care Teams Spray Unit Feeder Relationship Specialty Start Date End Date [facility] [address] [place] [address] PCP - General 11/15/23
--- OUTSIDE RECORDS SUMMARY | 2024-08-19 10:18 | XMS_ITS | Encounter Summary ---
Author Organization [facility] Address [address] [place] [address] Care Team Providers Care Auto Fleet Maintenance Manager Name Role Phone Petty Carcamo [facility]- Primary Care Provider [phone] Reason for Referral * Referral (Routine/Next Available) - Authorization Not Required Specialty Diagnoses / Procedures Referred By Bessy dodge Referred To Contact Diagnoses Encounter for screening colonoscopy Procedures COLONOSCOPY Cinthia Ortiz FNP [address] [place] [address] Phone: tel: fax: Referral ID Status Reason Start Date Expiration Date Visits Requested Visits Authorized [id number] Authorization Not Required 09/07/2023 1 1 Reason for Visit * Auth/Cert (Routine) Specialty Diagnoses / Procedures Referred By Bessy dodge Referred To Contact Referral ID Status Reason Start Date Expiration Date Visits Re quested Visits Authorized [id number] 1 1 Encounter Details Date Type Department Care Team (Latest Contact Info) Description 05/01/2024 7:43 EDT - 05/01/2024 23:59 EDT Hospital Encounter [facility] [place] [address] [place], [place] [address] Nael Hernandez MD [facility] [address] [place] [address] Encounter for screening colonoscopy Discharge [...] & Physical Date: 05/01/2024 Time: 9:17 Location: [facility] Endoscopy Planned Procedure: Colonoscopy Chief Complaint/Indications for [...] Contact Info) Description 09/23/2024 15:50 [place] [address] documented as of this encounter Procedures Procedure Name Priority Date/Time Associated Diagnosis Comments ECG REPORT - SCANNED 05/05/2024 11:10 EDT COLONOSCOPY Routine 05/01/2024 8:45 EDT Encounter for screening colonoscopy documented in this encounter Results * ECG REPORT - SCANNED (05/05/2024 11:10 EDT) 05/05/2024 11:1 0 EDT us Scan 2 Contact Lens Inspector PROCEDURE/MINOR SURGICAL OR DERABLES Final Result * COLONOSCOPY (05/01/2024 8:45 EDT) Anatomical Region Laterality Modality Endoscopy Narrative 05/01/2024 8:45 EDT [facility] ?? [address], [place], [place] [address] ?? Patient Name ?ELIZABETH HURLEY Date of ?1960 Record Number ?[id number] Date/Time of Procedure ?05/01/2024, 08:45:00 AM Endoscopist ?Nael Hernandez ?? Vice Admiral ? Referring Physician(s) ?? ASHISH Humphries Anesthesiologist ? Procedure Performed: COLONOSCOPY Indications for Exam: Surveillance for Hx polyps (subcentimeter tubular adenoma 2012) Instruments: ? [facility]-[id number] ([id number]) Medications: ?Fentanyl 75 mcg, Versed 4 mg [...] By Nael Hernandez M.D. us Cinthia Ortiz [facility] [employer] GI PROCEDURE ORDERABLES Delmy l Result documented [...] 05/01 documented in this encounter Care Teams Auto Fleet Maintenance Manager Relationship Specialty Start Date End Date Gayle [facility] [address] [facility] [place] [address] PCP - General 11/15/23 documented as of this encounter
--- OUTSIDE RECORDS SUMMARY | 2024-08-19 10:18 | XMS_ITS | Encounter Summary ---
Author Organization [facility] Address [address] [place] [address] Care Team Providers Care Drawing In Machine Tender Name Role Phone Yaw Perea MD Primary Care Provider [phone] Encounter Details Date Type Department Care Team (Late st Contact Info) Description 05/10/2011 Historical Results Only [facility] Lab - Main [place] [address] [place] [address] Yaw Perea MD [address] [place] [address] Social History Tobacco Use Types Packs/Day [...] Contact Info) Description 09/23/2024 15:50 EST Appointment [facility] Mammography [address] [place], [place] [address] documented as of this encounter Procedures Procedure Name Priority Date/Time Associated Diagnosis Comments PAP TEST Routine 05/10/2011 16:41 EDT documented in this encounter Results * PAP TEST (05/10/2011 16:41 EDT) 05/10/2011 16:4 1 EDT 05/11/2011 15:07 EDT Narrative [facility] - 05/15/2011 10:54 EDT ----- ------- Name: ELIZABETH HURLEY ? : [birth year] ?Age/Sex: 59/F ?Unit#: [id number] ? Loc: MHC ? Status: REG POV ?? Reg Date: 05/10/11 ? Pt.Phone Number: ? ----- ------- Specimen: [id number] ?STATUS: SOUT ?Spec Date:05/10/11 ? Physician Copies: ?Yaw Perea MD ? Tissues: ? Cervical/Endo Pap ? CPT: 91610 ?? Units: ??1 ----- ------- ? CYTOLOGY [...] confirmed the above diagnosis. Test Performed by [facility], [address] [place] [address] Guest Services Representative: Sana Shearer MD PHD ----- ------- us Yaw Perea MD PATHOLOGY ORDERABLES Final Resul t [facility] documented in this encounter Visit Diagnoses Not on filedocumented in this encounter Care Teams Drawing In Machine Tender Relationship Specialty Start Date End Date Yaw Perea MD [address] [place], [place] [id number] PCP - General 03/24/11 03/10/20 documented as of this encounter
--- OUTSIDE RECORDS SUMMARY | 2024-08-19 10:18 | XMS_ITS | Encounter Summary ---
Author Organization [facility] Address [address] [place] [address] Care Team Providers Care Antisqueak Chalker Name Role Phone Yaw Perea MD Primary Care Provider [phone] Encounter Details Date Type Department Care Team (Late st Contact Info) Description 03/07/2013 Historical Results Only [facility] Lab - Main [place] [address] [place] [id number] Nadeem Dial MD Social History Tobacco Use [...] Contact Info) Description 09/23/2024 15:50 EST Appointment [facility] Mammography [address] [place] [address] documented as of this encounter Procedures Procedure Name Priority Date/Time Associated Diagnosis Comments SURGICAL PATHOLOGY Routine 03/07/2013 documented in this encounter Results * SURGICAL PATHOLOGY (03/07/2013) 03/07/2013 03/07/2013 16: 33 EDT Narrative [facility] - 03/10/2013 14:16 EDT ----- ------- Name: ELIZABETH HURLEY ? : [birth year] ?Age/Sex: 59/F ?Unit#: [id number] ? Loc: END ? Status: DEP CLI ?? Reg Date: 03/07/13 ? Pt.Phone Number: ? ----- ------- Specimen: [id number] ? STATUS: SOUT ?Spec Date:03/07/13 ? Physician Copies: ?Nadeem Dial MD ?? Tissues: A ?? Gastrointestinal Tract (RECTUM) ?Yaw Perea MD ? CPT: 09735 ?? Units: ??1 ?FINAL DIAGNOSIS ? Rectum, [...] confirmed the above diagnosis. Test Performed by , [address] [place], [place] [id number] Specialty Molder: Sana Shearer MD PHD ----- ------- us Nadeem Dial MD PATHOLOGY ORDERABLES Final [facility] documented in this encounter Visit Diagnoses Not on filedocumented in this encounter Care Teams Antisqueak Chalker Relationship Specialty Start Date End Date Yaw Perea MD [address] [place] [address] PCP - General 03/24/11 03/10/20 documented as of this encounter
--- OUTSIDE RECORDS SUMMARY | 2024-08-19 10:18 | XMS_ITS | Encounter Summary ---
Author Organization [facility] Address [address] [place] [address] Care Team Providers Care Windmill Technician Name Role Phone Yaw Perea MD Primary Care Provider [phone] Encounter Details Date Type Department Care Team (Latest Contact Info) Description 11/29/2016 22:03 EDT - 11/29/2016 23:59 [place] [address] Unknown, Provider, Discharge Disposition: Home or Self [...] Code Departure Means Destination Home or Self Custodial documented in this encounter Plan of Treatment Upcoming Encounters Date Type Department Care Team (Late st Contact Info) Description 09/23/2024 15:50 EST Appointment [facility] Mammography [address] [place], [place] [phone] documented as of this encounter Visit Diagnoses Not on filedocumented in this encounter Care Teams Windmill Technician Relationship Specialty Start Date End Date Yaw Perea MD [address] [place] [address] PCP - General 03/24/11 03/10/20 documented as of this encounter
--- OUTSIDE RECORDS SUMMARY | 2024-08-19 10:18 | XMS_ITS | Encounter Summary ---
Author Organization [facility] Address [address] [place] [address] Care Team Providers Care Overhead Foreman Name Role Phone Yaw Perea MD Primary Care Provider [phone] Reason for Visit * Reason Comments Laryngitis 3 months chronic lar yngitis worse with voice overuse. changes in severity mild to severe-started with cold and allergy symptoms Encounter Details Date Type Department Care Team (Late st Contact Info) Description 05/02/2011 14:20 EDT Office Visit [facility] ENT [facility] [address] [place] [address] Unknown, Provider, Ganesh Ahn MD [address] [place] [address] [address] [place] [address] Vocal cord nodules (Primary Dx) Social [...] Contact Info) Description 09/23/2024 15:50 EST Appointment [address] [address] documented as of this encounter Visit Diagnoses Diagnosis Vocal cord nodules- Primary Other diseases of vocal cords documented in this encounter Care Teams Overhead Foreman Relationship Specialty Start Date End Date Yaw Perea MD [address] [place] [address] PCP - General 03/24/11 03/10/20 documented as of this encounter
--- OUTSIDE RECORDS SUMMARY | 2024-08-19 10:18 | XMS_ITS | Encounter Summary ---
Author Organization [facility] Address [address] [place] [address] Care Team Providers Care Local Telephone Operator Name Role Phone Yaw Perea MD Primary Care Provider [phone] Encounter Details Date Type Department Care Team (Late st Contact Info) Description 12/10/2017 Historical Results Only [facility] Radiology Results [address] [place], [place] [phone] Shirley Nation, WOOL WASHER [address] [place] [address] Social History Tobacco Use Types [...] Contact Info) Description 09/23/2024 15:50 EST Appointment [facility] Mammography [address] [place] [address] documented as of this encounter Visit Diagnoses Not on filedocumented in this encounter Care Teams Local Telephone Operator Relationship Specialty Start Date End Date Yaw Perea MD [address] [place] [address] PCP - General 03/24/11 03/10/20 documented as of this encounter
--- OUTSIDE RECORDS SUMMARY | 2024-08-19 10:18 | XMS_ITS | Encounter Summary ---
Author Organization [facility] Address [address] [place] [address] Care Team Providers Care Trolley Cleaner Name Role Phone Yaw Perea MD Primary Care Provider [phone] Encounter Details Date Type Department Care Team (Late st Contact Info) Description 05/02/2011 Abstract Used for ABSTRACTING Data [phone] Yaw Perea MD [address] [place] [address] Social History Tobacco Use Types [...] Contact Info) Description 09/23/2024 15:50 EST Appointment [facility] Mammography [address] [place], [place] [address] documented as of this encounter Visit Diagnoses Not on filedocumented in this encounter Care Teams Trolley Cleaner Relationship Specialty Start Date End Date Yaw Perea MD [address] [place], [place] [phone] PCP - General 03/24/11 03/10/20 documented as of this encounter
--- OUTSIDE RECORDS SUMMARY | 2024-08-19 10:18 | XMS_ITS | Encounter Summary ---
Author Organization [facility] Address [address] [place] [address] Care Team Providers Care Silversmith Apprentice Name Role Phone Yaw Perea MD Primary Care Provider [phone] Encounter Details Date Type Department Care Team (Late Contact Info) Description 05/02/2011 Abstract Used for ABSTRACTING Data [phone] Yaw Perea MD [address] [place] [address] Social History Tobacco Use Types [...] Info) Description 09/23/2024 15:50 EST Appointment [facility] Mammography [address] [place] [address] documented as of this encounter Visit Diagnoses Not on filedocumented in this encounter Historical Medications * This list may reflect changes made after this encounter. simvastatin (ZOCOR) 40 mg tablet Take 1 Tablet by mouth daily. added in this encounter Care Teams Silversmith Apprentice Relationship Specialty Start Date End Date Yaw Perea MD [address] [place], [place] [phone] PCP - General 03/24/11 03/10/20 documented as of this encounter
--- OUTSIDE RECORDS SUMMARY | 2024-08-19 10:18 | XMS_ITS | Encounter Summary ---
Author Organization [facility] Address [address] [place] [address] Care Team Providers Care Thread Reeler Name Role Phone Yaw Perea MD Primary Care Provider [phone] Encounter Details Date Type Department Care Team (Late st Contact Info) Description 12/04/2013 Historical Results Only [facility] Lab - Main [place] [address] [place] [address] Yaw Perea MD [address] [place] [address] Social History Tobacco Use Types Packs/Day [...] Contact Info) Description 09/23/2024 15:50 EST Appointment [facility] Mammography [address] [place] [address] documented as of this encounter Procedures Procedure Name Priority Date/Time Associated Diagnosis Comments PAP TEST Routine 12/04/2013 10:09 EDT documented in this encounter Results * PAP TEST (12/04/2013 10:09 EDT) 12/04/2013 10:0 9 EDT 12/05/2013 10:09 EDT Narrative [facility] - 12/11/2013 11:37 EDT ----- ------- Name: ELIZABETH HURLEY ? : 64 ?Age/Sex: 59/F ?Unit#: [id number] ? Loc: MHC ? Status: REG POV ?? Reg Date: 12/04/13 ? Pt.Phone Number: ? ----- ------- Specimen: [id number] ?STATUS: SOUT ?Spec Date:12/04/13 ? Physician Copies: ?Yaw Perea MD ? Tissues: ? Cervical/Endo Pap ? CPT: 67430 ?? Units: ??1 ----- ------- ? CYTOLOGY [...] 56, 58, 59, 66, 68. ? Method: CodaMationista HPV HR (High Risk) DNA test. ----- [...] confirmed the above diagnosis. Test Performed by [facility] [place] [facility], [address] [place], [place] [id number] Special Delivery Worker: Sana Shearer MD PHD ----- ------- us Yaw Perea MD PATHOLOGY ORDERABLES Final Resul t [facility] documented in this encounter Visit Diagnoses Not on filedocumented in this encounter Care Teams Thread Reeler Relationship Specialty Start Date End Date Yaw Perea MD [address] [place] [address] PCP - General 03/24/11 03/10/20 documented as of this encounter
--- OUTSIDE RECORDS SUMMARY | 2024-08-19 10:18 | XMS_ITS | Encounter Summary ---
Author Organization [facility] Address [address] [place] [address] Care Team Providers Care Van Driver Helper Name Role Phone Yaw Perea MD Primary Care Provider [phone] Encounter Details Date Type Department Care Team (Late Contact Info) Description 11/29/2016 Historical Results Only [facility] Radiology Results [address] [place], [place] [address] Barbara Rader DNP CNM BRIDGE CLUB MANAGER [address] [place], [place] [phone] Social History Tobacco Use Types Packs/Day Years [...] Contact Info) Description 09/23/2024 15:50 EST Appointment [facility] Mammography [address] [place], [place] [address] documented as of this encounter Visit Diagnoses Not on filedocumented in this encounter Care Teams Van Driver Helper Relationship Specialty Start Date End Date Yaw Perea MD [address] [place] [address] PCP - General 03/24/11 03/10/20 documented as of this encounter
--- OUTSIDE RECORDS SUMMARY | 2024-08-19 10:18 | XMS_ITS | Encounter Summary ---
Author Organization [facility] Address [address] [place] [address] Care Team Providers Care Community Health Promoter Name Role Phone Petty Carcamo [facility]- Primary Care Provider [phone] Reason for Visit * Reason Comments Tailbone Pain Patient reports that she fell ice skating six weeks ago. Patient notes that injury was resolving. Patient states that after doing yoga last week patient's tailbone pain started to worsen again. Encounter Details Date Type Department Care Team (Late st Contact Info) Description 11/15/2023 10:00 EDT Walk-In [facility] [address] [place] [phone] Gerry Hudson, BIOFUELS PRODUCTION TECHNICIAN [address] [facility] [address] [place] [address] Coccyx pain (Primary Dx) Social [...] to AR[facility], regardless of vaccination status)-No PCP: [facility]- Dona BENAVIDES RN 11/15/2023 9:55 * Gerry Hudson NP - 11/15/2023 1000 EDT Images from the original note were not included. [facility] Care Chief Complaint(s): Tailbone Pain (Patient [...] Contact Info) Description 09/23/2024 15:50 EST Appointment [facility] Mammography [address] [place] [address] documented as of this encounter Visit Diagnoses Diagnosis Coccyx pain- Primary Other disorder of coccyx documented in this encounter Historical Medications * This list may reflect changes made after this encounter. estradioL [address] 10 mcg vaginally twice a week. added in this encounter Care Teams Community Health Promoter Relationship Specialty Start Date End Date Dona [facility] [address] [place] [address] PCP - General 11/15/23 documented as of this encounter
--- OUTSIDE RECORDS SUMMARY | 2024-08-19 10:18 | XMS_ITS | Encounter Summary ---
Author Organization [facility] Address [address] [place] [address] Care Team Providers Care Agricultural Extension Agent Name Role Phone Yaw Perea MD Primary Care Provider [phone] Encounter Details Date Type Department Care Team (Late st Contact Info) Description 10/12/2015 Historical Results Only [facility] Radiology Results [address] [place] [address] Yaw Perea MD [address] [place] [address] Social History Tobacco Use Types Packs/Day [...] Contact Info) Description 09/23/2024 15:50 EST Appointment [facility] Mammography [address] [place] [address] documented as of this encounter [...] CC: ? Transcribed Date/Time: 10/13/2015 (1525) ? Steam Plant Operator: ERIC ? Printed Date/Time: 01/16/2019 (4883) ? PAGE 1 ? Signed Report ? [...] Pasha Miller MD CC: Transcribed Date/Time: 10/13/2015 (7157) Steam Plant Operator: ERIC Printed Date/Time: 01/16/2019 (5737) PAGE 1 Signed Report Yaw Perea MD IM MAMMOGRAPHY ORDERABLES Final Result documented in this encounter Visit Diagnoses Not on filedocumented in this encounter Care Teams Agricultural Extension Agent Relationship Specialty Start Date End Date Yaw Perea MD [address] [place] [address] PCP - General 03/24/11 03/10/20 documented as of this encounter
--- OUTSIDE RECORDS SUMMARY | 2024-08-19 10:18 | XMS_ITS | Encounter Summary ---
Author Organization [facility] Address [address] [place] [address] Care Team Providers Care Shredded Filler Cigar Maker Machine Name Role Phone Shirley Nation APRN Primary Care Provider + Reason for Referral * Radiology Services (Routine/Next Available) - Authorization Not Required Specialty Diagnoses / Procedures Referred By Contac t Referred To Contact Diagnoses Encounter for screening mammogram for malignant neoplasm of breast Procedures MA BREAST SCREENING AMY BILATERAL Shirley Nation APRN [address] [place] [address] Phone: tel: fax: [facility] [place] Referral ID Status Reason Start Date Expiration Date Visits Requested Visits Authorized [id number] Authorization Not Required 06/13/2023 1 1 Reason for Visit * Radiology Services (Routine/Next Available) - Authorization Not Required Specialty Diagnoses / Procedures Referred By Contac dar Referred To Contact Diagnoses Encounter for screening mammogram for malignant neoplasm of breast Procedures MA BREAST SCREENING AMY BILATERAL Shirley Nation APRN [address] [place] [address] Phone: tel: fax: [facility] [place] Referral ID Status Reason Start Date Expiration Date Visits Requested Visits Authorized [id number] Authorization Not Required 06/13/2023 1 1 Encounter Details Date Type Department Care Team (Latest Contact Info) Description 06/14/2023 15:10 EST - 06/14/2023 23:59 EST Hospital Encounter [facility] Mammography [address] [place] [address] Encounter for screening mammogram for malignant neoplasm [...] Contact Info) Description 09/23/2024 15:50 EST Appointment [facility] Mammography [address] [place] [address] documented as of this encounter Procedures Procedure [...] needed we will contact your patient directly. [id number] Narrative 06/15/2023 12:52 EST MA BREAST SCREENING [...] is needed we will contact yourpatient directly. [id number] Shirley Nation APRN IMG MAMMOGRAPHY ORDERABL ES Final Result documented in this encounter Visit Diagnoses Diagnosis Encounter for screening mammogram for malignant neoplasm of breast Other screening mammogram documented in this encounter Care Teams Shredded Filler Cigar Maker Machine Relationship Specialty Start Date End Date Shirley Nation APRN [address] [place] [address] [place] [address] PCP - General 04/06/20 11/14/23 documented as of this encounter
--- OUTSIDE RECORDS SUMMARY | 2024-08-19 10:18 | XMS_ITS | Encounter Summary ---
Author Organization [facility] Address [address] [place] [address] Care Team Providers Care Machine Chocolate Molder Name Role Phone Yaw Perea MD Primary Care Provider [phone] Encounter Details Date Type Department Care Team (Late st Contact Info) Description 01/08/2019 Historical Results Only [facility] Radiology Results [address] [place], [place] [address] Shirley Nation, TUBING MACHINE TENDER [address] [place] [address] Social History Tobacco Use Types [...] Contact Info) Description 09/23/2024 15:50 EST Appointment [facility] Mammography [address] [place] [address] documented as of this encounter [...] CC: ? Transcribed Date/Time: 01/08/2019 (858) ? Scientific Informatics Project Leader: ? Printed Date/Time: 04/23/2019 (391) ? PAGE 1 ? Signed Report ? [...] Reis MD CC: Transcribed Date/Time: 01/08/2019 (59) Scientific Informatics Project Leader: Printed Date/Time: 04/23/2019 (453) PAGE 1 Signed Report Shirley Nation TUBING MACHINE TENDER IMG MAMMOGRAPHY ORDERABL ES Final Result documented in this encounter Visit Diagnoses Not on filedocumented in this encounter Care Teams Machine Chocolate Molder Relationship Specialty Start Date End Date Yaw Perea MD [address] [place] [address] PCP - General 03/24/11 03/10/20 documented as of this encounter
--- OUTSIDE RECORDS SUMMARY | 2024-08-19 10:18 | XMS_ITS | Encounter Summary ---
Author Organization [facility] Address [address] [place] [address] Care Team Providers Care Movie Stunt Performer Name Role Phone Yaw Perea MD Primary Care Provider [phone] Encounter Details Date Type Department Care Team (Late st Contact Info) Description 12/11/2017 Historical Results Only [facility] Radiology Results [address] [place], [place] [address] Shirley Nation, GROMMET MAN [address] [place] [address] Social History Tobacco Use Types [...] Contact Info) Description 09/23/2024 15:50 EST Appointment [facility] Mammography [address] [place] [address] documented as of this encounter [...] CC: ? Transcribed Date/Time: 12/11/2017 (1453) ? Construction Job Cost Estimator: ? Printed Date/Time: 01/24/2019 (1441) ? PAGE [...] Delio Tapia MD CC: Transcribed Date/Time: 12/11/2017 (0499) Construction Job Cost Estimator: Printed Date/Time: 01/24/2019 (8392) PAGE 1 Signed Report Shirley Nation GROMMET MAN IMG MAMMOGRAPHY ORDERABL ES Final Result documented in this encounter Visit Diagnoses Not on filedocumented in this encounter Care Teams Movie Stunt Performer Relationship Specialty Start Date End Date Yaw Perea MD [address] [place] [address] PCP - General 03/24/11 03/10/20 documented as of this encounter
--- OUTSIDE RECORDS SUMMARY | 2024-08-19 10:18 | XMS_ITS | Encounter Summary ---
Author Organization [facility] Address [address] [place] [address] Care Team Providers Care News Editor Name Role Phone Yaw Perea MD Primary Care Provider [phone] Encounter Details Date Type Department Care Team (Latest Contact Info) Description 07/22/2014 8:34 EST - 07/22/2014 23:59 [place] [address] Unknown, Provider, Discharge Disposition: Home or Self [...] Description 09/23/2024 15:[address] [facility] Mammography [address] [place] [address] documented as of this encounter Visit Diagnoses Not on filedocumented in this encounter Care Teams News Editor Relationship Specialty Start Date End Date Yaw Perea MD [address] [place] [address] PCP - General 03/24/11 03/10/20 documented as of this encounter
--- OUTSIDE RECORDS SUMMARY | 2024-08-19 10:18 | XMS_ITS | Clinical Summary ---
Author Organization [facility] Address [address] [place] [address] Care Team Providers Care Refrigerator Repair Technician Name Role Phone [facility] Primary Care Provider [phone] Allergies No known active allergies Medications simvastatin [...] Contact Info) Description 09/23/2024 15:50 EST Appointment [facility] Mammography [address] [place] [address] Health Maintenance Due Date Last Done Comments [...] EDT [facility] ?? [address], [place], [place] [address] ?? Patient Name ?ELIZABETH HURLEY Date of ?1960 Record Number ?[id number] Date/Time of Procedure ?05/01/2024, 08:45:00 AM Endoscopist ?Nael Hernandez ?? E Business Project Manager ? Referring Physician(s) ?? ASHISH Humphries Anesthesiologist ? Procedure Performed: COLONOSCOPY Indications for Exam: Surveillance for Hx polyps (subcentimeter tubular adenoma 2013) Instruments: ? [id number] ([id number]) Medications: ?Fentanyl 75 mcg, Versed 4 mg [...] AM By Nael Hernandez M.D. Cinthia Ortiz CHANNEL PROCESS SUPERVISOR GI PROCEDURE ORDERABLES Delmy l Result from Last 3 Months or Most Recently Relevant to Health Maintenance Insurance [employer] Care Teams Refrigerator Repair Technician Relationship Specialty Start Date End Date [facility] [address] [facility] [place] [address] PCP - General 11/15/23
--- OUTSIDE RECORDS SUMMARY | 2024-08-19 10:18 | XMS_ITS | Encounter Summary ---
Author Organization [facility] Address [address] [place] [address] Care Team Providers Care Assistive Technology Specialist Name Role Phone Yaw Perea MD Primary Care Provider [phone] Encounter Details Date Type Department Care Team (Latest Contact Info) Description 01/06/2019 9:13 EDT - 01/06/2019 23:59 [place] [address] Unknown, Provider, Discharge Disposition: Home or Self [...] Code Departure Means Destination Home or Self Retirement documented in this encounter Plan of Treatment Upcoming Encounters Date Type Department Care Team (Late st Contact Info) Description 09/23/2024 15:50 EST Appointment [facility] Mammography [address] [place], [place] [id number] documented as of this encounter Visit Diagnoses Not on filedocumented in this encounter Care Teams Assistive Technology Specialist Relationship Specialty Start Date End Date Yaw Perea MD [address] [place] [address] PCP - General 03/24/11 03/10/20 documented as of this encounter
--- OUTSIDE RECORDS SUMMARY | 2024-08-19 10:18 | XMS_ITS | Encounter Summary ---
Author Organization [facility] Address [address] [place] [address] Care Team Providers Care Stretch Press Operator Name Role Phone Shirley Nation TAPE CUTTING MACHINE OPERATOR Primary Care Provider + [facility] Primary Care Provider [phone] Encounter Details Date Type Department Care Team (Late st Contact Info) Description 04/07/2020 Results Only [facility] Radiology Results [address] [place] [address] Shirley Nation, TAPE CUTTING MACHINE OPERATOR [address] [place] [address] Social History Tobacco Use Types [...] Contact Info) Description 09/23/2024 15:50 EST Appointment [facility] Mammography [address] [place] [address] documented as of this encounter [...] IN OTHER VENDOR SYSTEM 04/07/2020 ?Reported By: Psaha Miller MD ? CC: ? Transcribed Date/Time: 04/07/2020 (1258) ? Dispatcher Automobile Rental: ? Printed Date/Time: 04/07/2020 (5605) ? PAGE 1 ? Signed Report ? [...] Pasha Miller MD CC: Transcribed Date/Time: 04/07/2020 (1416) Dispatcher Automobile Rental: Printed Date/Time: 04/07/2020 (7925) PAGE 1 Signed Report Shirley Nation APRN IMG MAMMOGRAPHY ORDERABL ES Final Result documented in this encounter Visit Diagnoses Not on filedocumented in this encounter Care Teams Stretch Press Operator Relationship Specialty Start Date End Date Shirley Nation APRN [address] [place] [id number] PCP - General 04/06/20 11/14/23 [facility] [address] [place] [address] PCP - General 11/15/23 documented as of this encounter
--- OUTSIDE RECORDS SUMMARY | 2024-08-19 10:18 | XMS_ITS | Encounter Summary ---
Author Organization [facility] Address [address] [place] [address] Care Team Providers Care Bridge Crew Member Name Role Phone Yaw Perea MD Primary Care Provider [phone] Encounter Details Date Type Department Care Team (Late st Contact Info) Description 05/22/2019 Results Only [facility] [phone] Janae Nation, AVIONICS TECHNICIAN [address] [place] [address] Social History Tobacco Use Types [...] Info) Description 09/23/2024 15:[address] [facility] Mammography [address] [place] [address] documented as of this encounter Procedures Procedure [...] ? ELIZABETH HURLEY ? Accession #: ? [id number] ? : ? 1960 (Age: 59) ??F ?Collect Date: ? 05/22/2019 ? Location: ? [facility] ? Receive Date: ? 05/26/2019 ? Provider: JANAE NATION AVIONICS TECHNICIAN Copy to: ? Final Report SPECIMEN ADEQUACY [...] types 16,18,31,33,35, 39,45,51,52,56,58, 59,66, and 68 by industrial cleaning technician mediated amplification. Comments Document reviewed and electronically signed by: ? System Interface ? Report date: 05/29/2019 By the signature above, the attending physician certifies that he/she has personally conducted a gross and/or microscopic examination of the described specimens and rendered or confirmed the above diagnosis. End of Report [facility] 05/22/2019 05/26/2019 us Janae Nation AVIONICS TECHNICIAN PATHOLOGY ORDERABLES Fin al Result [facility] [address] [place] [address] documented in this encounter Visit Diagnoses Not on filedocumented in this encounter Care Teams Bridge Crew Member Relationship Specialty Start Date End Date Yaw Perea MD [address] [place] [address] PCP - General 03/24/11 03/10/20 documented as of this encounter
--- OUTSIDE RECORDS SUMMARY | 2024-08-19 10:18 | XMS_ITS | Encounter Summary ---
Author Organization [facility] Address [address] [place] [address] Care Team Providers Care Conservation Specialist Name Role Phone Yaw Perea MD Primary Care Provider [phone] Encounter Details Date Type Department Care Team (Latest Contact Info) Description 12/10/2017 21:10 EDT - 12/10/2017 23:59 [place] [address] Unknown, Provider, Discharge Disposition: Home or Self [...] Code Departure Means Destination Home or Self [facility]dc documented in this encounter Plan of Treatment Upcoming Encounters Date Type Department Care Team (Late st Contact Info) Description 09/23/2024 15:50 EST Appointment [facility] Mammography [address] [place], [place] [phone] documented as of this encounter Visit Diagnoses Not on filedocumented in this encounter Care Teams Conservation Specialist Relationship Specialty Start Date End Date Yaw Perea MD [address] [place] [address] PCP - General 03/24/11 03/10/20 documented as of this encounter
--- OUTSIDE RECORDS SUMMARY | 2024-08-19 10:18 | XMS_ITS | Encounter Summary ---
Author Organization [facility] Address [address] [place] [address] Care Team Providers Care Engineering Manager Name Role Phone Yaw Perea MD Primary Care Provider Encounter Details Date Type Department Care Team (Latest Contact Info) Description 12/08/2013 10:49 EDT - 12/08/2013 23:59 EDT [place] [address] Unknown, Provider, Discharge Disposition: Home or Self [...] Contact Info) Description 09/23/2024 15:50 EST Appointment [facility] Mammography [address] [place], [place] [id number] documented as of this encounter Visit Diagnoses Not on filedocumented in this encounter Care Teams Engineering Manager Relationship Specialty Start Date End Date Yaw Perea MD [address] [place] [address] PCP - General 03/24/11 03/10/20 documented as of this encounter
--- OUTSIDE RECORDS SUMMARY | 2024-08-19 10:18 | XMS_ITS | Encounter Summary ---
Author Organization [facility] Address [address] [place] [address] Care Team Providers Care Director Vaccine Name Role Phone Yaw Perea MD Primary Care Provider [phone] Encounter Details Date Type Department Care Team (Late st Contact Info) Description 02/07/2019 Results Only [facility] [phone] Janae Nation, PETROLEUM GEOLOGIST [address] [place] [address] Social History Tobacco Use Types [...] Contact Info) Description 09/23/2024 15:50 EST Appointment [facility] Mammography [address] [place] [address] documented as of this encounter Procedures Procedure [...] ? ELIZABETH HURLEY ? Accession #: ? [id number] : ? 1960 (Age: 59) ??F ?Collect Date: ? 02/04/2019 Location: ? [facility] ? Receive Date: ? 02/07/2019 Provider: ?JANAE NATION PETROLEUM GEOLOGIST Copy to: ? Specimen/Source: ?Pap Test, Cervix, [...] Report Date: ??02/11/2019 14:39 End of Report [facility] 02/04/2019 02/07/2019 us Janae Nation PETROLEUM GEOLOGIST PATHOLOGY ORDERABLES Fin al Result [facility] [address] [place] [address] documented in this encounter Visit Diagnoses Not on filedocumented in this encounter Care Teams Director Vaccine Relationship Specialty Start Date End Date Yaw Perea MD [address] [place] [address] PCP - General 03/24/11 03/10/20 documented as of this encounter
--- OUTSIDE RECORDS SUMMARY | 2024-08-19 10:18 | XMS_ITS | Encounter Summary ---
Author Organization [facility] Address [address] [place] [address] Care Team Providers Care Fuse Spooler Name Role Phone Shirley Nation GROCERY CARRIER Primary Care Provider + [facility] Primary Care Provider [phone] Encounter Details Date Type Department Care Team (Late st Contact Info) Description 04/13/2021 Results Only Imaging [facility] Radiology Results [address] [place] [address] Shirley Nation, GROCERY CARRIER [address] [place] [address] Social History Tobacco Use Types [...] Contact Info) Description 09/23/2024 15:50 EST Appointment [facility] Mammography [address] [place] [address] documented as of this encounter [...] MD ? CC: ? Transcribed Date/Time: 04/13/2021 (0585) ? Store Person: ? Printed Date/Time: 04/13/2021 (2304) ? PAGE 1 ? Signed Report ? [...] Baron Reis MD CC: Transcribed Date/Time: 04/13/2021 (1905) Store Person: Printed Date/Time: 04/13/2021 (1386) PAGE 1 Signed Report Shirley Nation APRN IMG MAMMOGRAPHY ORDERABL ES Final Result documented in this encounter Visit Diagnoses Not on filedocumented in this encounter Care Teams Fuse Spooler Relationship Specialty Start Date End Date Shirley Nation APRN [address] [place] [address] PCP - General 04/06/20 11/14/23 [facility] [address] [place] [address] PCP - General 11/15/23 documented as of this encounter
--- OUTSIDE RECORDS SUMMARY | 2024-08-19 10:18 | XMS_ITS | Encounter Summary ---
Author Organization [facility] Address [address] [place] [address] Care Team Providers Care Gas Shovel Operator Name Role Phone Shirley Nation APRN Primary Care Provider + Reason for Referral * Radiology Services (Routine/Next Available) - Authorization Not Required Specialty Diagnoses / Procedures Referred By Contac t Referred To Contact Diagnoses Visit for screening mammogram Procedures MA BREAST SCREENING AMY BILATERAL Shirley Nation APRN [address] [place] [address] Phone: tel: fax: [facility] [place] Referral ID Status Reason Start Date Expiration Date Visits Requested Visits Authorized [id number] Authorization Not Required 03/29/2022 1 1 Reason for Visit * Radiology Services (Routine/Next Available) - Authorization Not Required Specialty Diagnoses / Procedures Referred By Contac t Referred To Contact Diagnoses Visit for screening mammogram Procedures MA BREAST SCREENING AMY BILATERAL Shirley Nation APRN [address] [place] [address] Phone: tel: fax: [facility] Referral ID Status Reason Start Date Expiration Date Visits Requested Visits Authorized [id number] Authorization Not Required 03/29/2022 1 1 Encounter Details Date Type Department Care Team (Latest Contact Info) Description 05/08/2022 15:47 EDT - 05/08/2022 23:[address] [facility] Mammography [address] [place] [address] Visit for screening mammogram Discharge Disposition: Home [...] Description 09/23/2024 15:[address] [facility] Mammography [address] [place] [address] documented as of this encounter Procedures Procedure [...] mammogram documented in this encounter Care Teams Gas Shovel Operator Relationship Specialty Start Date End Date Shirley Nation, KIKI [address] [place] [address] PCP - General 04/06/20 11/14/23 documented as of this encounter
--- OUTSIDE RECORDS SUMMARY | 2024-08-19 10:18 | XMS_ITS | Encounter Summary ---
Author Organization [facility] Address [address] [place] [address] Care Team Providers Care Beading Machine Operator Name Role Phone Yaw Perea MD Primary Care Provider [phone] Encounter Details Date Type Department Care Team (Latest Contact Info) Description 08/26/2018 10:14 EST - 08/26/2018 23:59 [place] [address] Unknown, Provider, Discharge Disposition: Home or Self [...] Code Departure Means Destination Home or Self Penitentiary documented in this encounter Plan of Treatment Upcoming Encounters Date Type Department Care Team (Late st Contact Info) Description 09/23/2024 15:[address] [facility] Mammography [address] [place] [address] documented as of this encounter Visit Diagnoses Not on filedocumented in this encounter Care Teams Beading Machine Operator Relationship Specialty Start Date End Date Yaw Perea MD [address] [place] [address] PCP - General 03/24/11 03/10/20 documented as of this encounter
--- OUTSIDE RECORDS SUMMARY | 2024-08-19 10:18 | XMS_ITS | Encounter Summary ---
Author Organization [facility] Address [address] [place] [address] Care Team Providers Care Review Trainer Name Role Phone Yaw Perea MD Primary Care Provider [phone] Encounter Details Date Type Department Care Team (Late st Contact Info) Description 01/17/2019 Historical Results Only [facility] Radiology Results [address] [place], [place] [address] Shirley Nation, FLOORING INSTALLER [address] [place] [address] Social History Tobacco Use Types [...] Contact Info) Description 09/23/2024 15:50 EST Appointment [facility] Mammography [address] [place] [address] documented as of this encounter [...] CC: ? Transcribed Date/Time: 01/17/2019 (1142) ? It Systems Manager: ? Printed Date/Time: 04/23/2019 (2150) ? PAGE [...] Reis MD CC: Transcribed Date/Time: 01/17/2019 (1142) It Systems Manager: Printed Date/Time: 04/23/2019 (1972) PAGE 2 Signed Report us Shirley Nation FLOORING INSTALLER IMG US ORDERABLES Final Result * MA [...] CC: ? Transcribed Date/Time: 01/17/2019 (1142) ? It Systems Manager: ? Printed Date/Time: 04/23/2019 (4329) ? PAGE 2 ? Signed Report ? [...] Reported By: Baron Reis MD Transcribed: 03/20/2019 (8006) REPORT EXAM: MAMMOGRAM/MAMMO DX CALL BACK UNI [...] Baron Reis MD CC: Transcribed Date/Time: 01/17/2019 (7708) It Systems Manager: Printed Date/Time: 04/23/2019 (8226) PAGE 2 Signed Report us Shirley Nation FLOORING INSTALLER IMG MAMMOGRAPHY ORDERABL ES Final Result documented in this encounter Visit Diagnoses Not on filedocumented in this encounter Care Teams Review Trainer Relationship Specialty Start Date End Date Yaw Perea MD [address] [place] [address] PCP - General 03/24/11 03/10/20 documented as of this encounter
--- OUTSIDE RECORDS SUMMARY | 2024-08-19 10:18 | XMS_ITS | Encounter Summary ---
Author Organization [facility] Address [address] [place] [address] Care Team Providers Care Automobile Appraiser Name Role Phone Yaw Perea MD Primary Care Provider [phone] Encounter Details Date Type Department Care Team (Latest Contact Info) Description 10/12/2015 15:48 EST - 10/12/2015 23:59 [place] [address] Unknown, Provider, Discharge Disposition: Home or Self [...] Code Departure Means Destination Home or Self Residential documented in this encounter Plan of Treatment Upcoming Encounters Date Type Department Care Team (Late st Contact Info) Description 09/23/2024 15:50 EST Appointment [facility] Mammography [address] [place] [address] documented as of this encounter Visit Diagnoses Not on filedocumented in this encounter Care Teams Automobile Appraiser Relationship Specialty Start Date End Date Yaw Perea MD [address] [place] [address] PCP - General 03/24/11 03/10/20 documented as of this encounter
--- OUTSIDE RECORDS SUMMARY | 2024-08-19 10:18 | XMS_ITS | Encounter Summary ---
Author Organization [facility] Address [address] [place] [address] Care Team Providers Care Supervisor Paper Testing Name Role Phone Yaw Perea MD Primary Care Provider [phone] Encounter Details Date Type Department Care Team (Late st Contact Info) Description 11/30/2016 Historical Results Only [facility] Radiology Results [address] [place], [place] [id number] Barbara Rader DNP CN LOCKSTITCH SHOULDER JOINER [address] [place] [address] Social History Tobacco Use Types Packs/Day [...] Info) Description 09/23/2024 15:50 EST Appointment [facility] Mammography [address] [place], [place] [id number] documented as of this encounter Procedures Procedure [...] CC: ? Transcribed Date/Time: 11/30/2016 (1026) ? Pulmonologist/Intensivist: ? Printed Date/Time: 01/18/2019 (1450) ? PAGE [...] Miller MD CC: Transcribed Date/Time: 11/30/2016 (1026) Pulmonologist/Intensivist: Printed Date/Time: 01/18/2019 (7366) PAGE 1 Signed Report Barbara Rader DNP CNM LOCKSTITCH SHOULDER JOINER IMG MAMMOGRAPHY OR DERABLES Final Result documented in this encounter Visit Diagnoses Not on filedocumented in this encounter Care Teams Supervisor Paper Testing Relationship Specialty Start Date End Date Yaw Perea MD [address] [place] [id number] PCP - General 03/24/11 03/10/20 documented as of this encounter
--- OUTSIDE RECORDS SUMMARY | 2024-08-19 10:18 | XMS_ITS | Encounter Summary ---
Author Organization [facility] Address [address] [place] [address] Care Team Providers Care Network Operations Manager Name Role Phone Yaw Perea MD Primary Care Provider [phone] Encounter Details Date Type Department Care Team (Late st Contact Info) Description 07/22/2014 Historical Results Only [facility] Radiology Results [address] [place] [address] Yaw Perea MD [address] [place] [address] Social History Tobacco Use Types Packs/Day [...] Contact Info) Description 09/23/2024 15:50 EST Appointment [facility] Mammography [address] [place] [address] documented as of this encounter [...] CC: ? Transcribed Date/Time: 07/27/2014 (1040) ? Drapery Rod Assembler: ERIC ? Printed Date/Time: 01/06/2019 (1451) ? [...] Reis MD CC: Transcribed Date/Time: 07/27/2014 (1040) Drapery Rod Assembler: ERIC Printed Date/Time: 01/06/2019 (4761) PAGE 1 Signed Report Yaw Perea MD IMG MAMMOGRAPHY ORDERABLES Final Result documented in this encounter Visit Diagnoses Not on filedocumented in this encounter Care Teams Network Operations Manager Relationship Specialty Start Date End Date Yaw Perea MD [address] [place] [id number] PCP - General 03/24/11 03/10/20 documented as of this encounter
[2024-08-19 16:51] LABS: TSH (W/Ref FT4) 1.03 uIU/mL (0.36-3.74)
[2024-08-20 12:52] LABS: Chlamydia Result Negative (Negative); GC Result Negative (Negative)
== END 2024-08-19 10:17 | disposition home or self-care (01) ==
LOC: NCHCN 10:16
PROVIDERS: PCP Nurse Practitioner Family; Visit Provider Nurse Practitioner Family
DX: Z83.49 Family history of other endocrine, nutritional and metabolic diseases (principal); Z13.29 Encounter for screening for other suspected endocrine disorder; Z00.00 Encounter for general adult medical examination without abnormal findings; Z12.4 Encounter for screening for malignant neoplasm of cervix
CPT/HCPCS: 87491; 87591; 88142; 84443; 87624